=== PATIENT | female | born 1990 | race Caucasian/White ===

== ENCOUNTER 2018-07-14 13:00 | Outpatient (RCR) | payer BC, SELFPAY ==
--- NOTE | 2018-07-08 13:48 | HMH.PTOPEV ---
PT Outpatient Evaluation Rehab PT Outpatient Evaluation Start: 07/08/18 13:00 Freq: Status: Active Protocol: Document 07/08/18 13:32 SUELLENSANDI (Rec: 07/08/18 13:48 SUELLENDANIELAJUAN RAMON [id number]) Electronically Signed By Royce Ny, PT 07/08/18 13:32 Outpatient Therapy Subjective History Subjective History Patient is a 28 year old female presenting to outpatient PT with reports of global chronic pain of insidious onset starting in 2012. Main complaint is pain starting in knees radiating to ankles, as well as cervical pain radiating to bilateral shoulders. 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 All other diagnostics negative. No previous PT to report. Chief Complaint Pain Stiff Paresthesia Symptom Type Ache Throb Sharp Dull Stabbing Burning Numbness Tingling Shooting Symptoms Relieved By Rest/Positioning Prescription Meds Symptoms Aggravated By Sitting Standing Bending/Stooping Physical Activity Twisting Walking Lifting Prior Functional Limitations None Current Functional Limitations Reaching Lifting Housework Sleeping Standing Sitting Squatting Recreation Activity Walking Stairs Bending/Stooping Symptom Description Constant but Variable Level of pain today (0-10) 4 Pain scale - at its best (0-10) 2 Pain scale - at its worst (0-10) 7 Cervical Eval Palpation Cervical Muscles R Cervical Paraspinal L Cervical Paraspinal
== END 2018-07-14 13:01 | disposition home or self-care (01) ==
LOC: PT 13:00
PROVIDERS: Family Provider Nurse Practitioner Family; Visit Provider Internal Medicine Adolescent Medicine
DX: M25.50 Pain in unspecified joint (principal); M79.7 Fibromyalgia
CPT/HCPCS: 97010; 97014; 97110; 97163; G0283

== ENCOUNTER 2019-03-04 12:12 | Emergency (ER) | payer SELFPAY ==
[2019-03-04 12:14] VITALS: BP 138/76; PULSE 70; RESP 16; TEMP 36.7; O2SAT 99; BMI 30.7
--- NOTE | 2019-03-04 12:37 | HMH.EDUTC ---
[facility] [place]algia Disposition: Home, Self-Care Condition on Discharge: Good Instructions: Fibromyalgia Additional Instructions: Continue to take your medications that I refilled. I did not prescribe the gabapentin. Use the list of providers that are taking new patients to find yourself a provider that takes your insurance. Prescriptions: Fluoxetine HCl 40 mg PO DAILY #30 cap Meloxicam 15 mg PO DAILY #30 tab Methocarbamol [Methocarbamol 500mg Tablet] 1,000 mg PO HS #60 tab Referrals: Chris Wallace MD [Primary Care Provider] - Time of Disposition: 12:44 Medical Decision Making - Medical Records Medical records reviewed: Yes: I reviewed the patient's medical records. - Lopez Inquiry Pt receiving controlled substance: No Lopez was queried for this patient: No Reference #:: [id number] Comment: lopez report is appropriate Vital Signs: 03/04/19 12:14 03/04/19 13:04 Temperature 98.1 F 98.1 F Temperature Source Oral Oral Pulse Rate 70 Pulse Rate [Left Radial] 70 Respiratory Rate 16 16 Blood Pressure 138/76 Blood Pressure [Right Arm] 138/76 Blood Pressure Mean [Right Arm] 96 Blood Pressure Source Automatic Cuff Blood Pressure Source [Right Arm] Automatic Cuff Blood Pressure Position Sitting Blood Pressure Position [Right Arm] Sitting 02 Sat by Pulse Oximetry 99 Oxygen Delivery Method Room Air Room Air Medical Decision Narrative: I refilled her maintenance medications (except gabapentin) for 30 days. She is to find a provider that takes her insurance during this time. A list of providers that take new patients was provided to her. [facility] [place] - General Stated complaint: Medication refill Time Seen by Provider: 03/04/19 12:38 Mode of Arrival: Ambulatory Source of Information: Patient Limitations: No Limitations Description of Symptoms (Recalled from Triage Doc. by RN): medication refill HEENT Symptoms (Recalled from RN notes): No Resp Symptoms (Recalled from RN notes): No Skin Symptoms (Recalled from RN notes): No MS Symptoms (Recalled from RN notes): No Functional Status (Recalled from RN notes): wnl - History of Present Illness Provider Complaint: He is here needing refills on her maintenance medications. She states she has a history of fibromyalgia. She is on prozac, gabapentin, meloxicam and robaxin. She states she went for her appointment today and was told that her doctor (Dr. Wallace) no longer took her insurance. She states she will be out of all her medications after today. - Related Data Home Medications Medication Instructions Recorded Confirmed Gabapentin [Gabapentin 300mg Cap] 300 mg PO TID 03/04/19 03/04/19 Previous Rx's Medication Instructions Recorded Fluoxetine HCl 40 mg PO DAILY #30 cap 03/04/19 Meloxicam 15 mg PO DAILY #30 tab 03/04/19 Methocarbamol [Methocarbamol 500mg 1,000 mg PO HS #60 tab 03/04/19 Tablet] Allergies Allergy/AdvReac Type Severity Reaction Status Date / Time Sulfa (Sulfonamide Allergy Mild Unverified 09/09/17 14:04 Antibiotics) [SULFA (SULFONAMIDE ANTIBIOTICS)] - Worker's Comp Is this a Worker's Comp case?: No [facility] History - Hepatitis A Screen Drug use history?: No High risk sexual behaviors?: No History of sexually transmitted infection?: No Currently employed?: No Childcare worker?: No Do you have indoor plumbing?: Yes Do you have electricity?: Yes Attestation statement:: This patient has been screened for Hepatitis A risk factors. I have reviewed the patient's past medical history: Yes - Social History Educational Level: Completed High School Smoking Status: Current every day smoker Tobacco Type: cigarettes # Packs/Day (cigarettes): 1 Alcohol Intake: never Occupational Status: employed Housing: house - Psychiatric History Expresses thoughts of harming self/others: None Suicide Plan Description: No Plan ROS Obtained: Yes All systems review
--- NOTE | 2019-03-04 12:42 | ED_ITS ---
[facility] [place]ression: Fibromyalgia Disposition: Home, Self-Care Condition on Discharge: Good Instructions: Fibromyalgia Additional Instructions: Continue to take your medications that I refilled. I did not prescribe the gabapentin. Use the list of providers that are taking new patients to find yourself a provider that takes your insurance. Prescriptions: Fluoxetine HCl 40 mg PO DAILY #30 cap Meloxicam 15 mg PO DAILY #30 tab Methocarbamol [Methocarbamol 500mg Tablet] 1,000 mg PO HS #60 tab Referrals: Chris Wallace MD [Primary Care Provider] - Time of Disposition: 12:44 Medical Decision Making - Medical Records Medical records reviewed: Yes: I reviewed the patient's medical records. - Lopez Inquiry Pt receiving controlled substance: No Lopez was queried for this patient: No Reference #:: [id number] Comment: lopez report is appropriate Vital Signs: 03/04/19 12:14 03/04/19 13:04 Temperature 98.1 F 98.1 F Temperature Source Oral Oral Pulse Rate 70 Pulse Rate [Left Radial] 70 Respiratory Rate 16 16 Blood Pressure 138/76 Blood Pressure [Right Arm] 138/76 Blood Pressure Mean [Right Arm] 96 Blood Pressure Source Automatic Cuff Blood Pressure Source [Right Arm] Automatic Cuff Blood Pressure Position Sitting Blood Pressure Position [Right Arm] Sitting 02 Sat by Pulse Oximetry 99 Oxygen Delivery Method Room Air Room Air Medical Decision Narrative: I refilled her maintenance medications (except gabapentin) for 30 days. She is to find a provider that takes her insurance during this time. A list of providers that take new patients was provided to her. [facility] [place] - General Stated complaint: Medication refill Time Seen by Provider: 03/04/19 12:38 Mode of Arrival: Ambulatory Source of Information: Patient Limitations: No Limitations Description of Symptoms (Recalled from Triage Doc. by RN): medication refill HEENT Symptoms (Recalled from RN notes): No Resp Symptoms (Recalled from RN notes): No Skin Symptoms (Recalled from RN notes): No MS Symptoms (Recalled from RN notes): No Functional Status (Recalled from RN notes): wnl - History of Present Illness Provider Complaint: He is here needing refills on her maintenance medications. She states she has a history of fibromyalgia. She is on prozac, gabapentin, meloxicam and robaxin. She states she went for her appointment today and was told that her doctor (Dr. Wallace) no longer took her insurance. She states she will be out of all her medications after today. - Related Data Home Medications Medication Instructions Recorded Confirmed Gabapentin [Gabapentin 300mg Cap] 300 mg PO TID 03/04/19 03/04/19 Previous Rx's Medication Instructions Recorded Fluoxetine HCl 40 mg PO DAILY #30 cap 03/04/19 Meloxicam 15 mg PO DAILY #30 tab 03/04/19 Methocarbamol [Methocarbamol 500mg 1,000 mg PO HS #60 tab 03/04/19 Tablet] Allergies Allergy/AdvReac Type Severity Reaction Status Date / Time Sulfa (Sulfonamide Allergy Mild Unverified 09/09/17 14:04 Antibiotics) [SULFA (SULFONAMIDE ANTIBIOTICS)] - Worker's Comp
--- NOTE | 2019-03-04 13:03 | PC.NURSE ---
Upon trying to discharge patient she refused to sign discharge papers stating she wanted to know if her insurance would cover the visit and stated that he didn't do anything anyway.
[2019-03-04 13:04] VITALS: BP 138/76; PULSE 70; RESP 16; TEMP 36.7; O2SAT 99
== END 2019-03-04 13:04 | disposition home or self-care (01) ==
PROVIDERS: Emergency Provider Nurse Practitioner Family; PCP Internal Medicine Adolescent Medicine
DX: M79.7 Fibromyalgia (principal); Z88.2 Allergy status to sulfonamides; F17.210 Nicotine dependence, cigarettes, uncomplicated
CPT/HCPCS: 99201

== ENCOUNTER 2020-02-02 13:30 | Emergency (ER) | payer MEDICAID, SELFPAY ==
[2020-02-02 13:31] VITALS: BP 136/98; PULSE 83; RESP 18; TEMP 36.8; O2SAT 100; BMI 29.9
--- NOTE | 2020-02-02 13:45 | HMH.EDUTC ---
[facility] [place] Clinical Impression: Cat bite involving extremity Disposition: Home, Self-Care Condition on Discharge: Good Instructions: DI for Cat Bite Additional Instructions: Keep the wound clean and dry. Watch the for signs of worsening infection, such as redness, swelling, drainage, fever. etc. Take tylenol or ibuprofen for pain. Follow up with your regular doctor 48 to 72 hours for a wound recheck. GO TO THE ER FOR ANY WORSENING SYMPTOMS OR CONCERNS. Prescriptions: Amoxicillin/Potassium Clav [Augmentin 875-125 Tablet] 1 tab PO Q12H 10 Days #20 tab Transmission Status: Received by [facility] # Mupirocin [Bactroban 2% Ointment 22gm tube] 1 applicatio TP TID 7 Days #1 tube Transmission Status: Received by [facility] # Referrals: Provider,Referral, [Primary Care Provider] - Forms: Work/School Release Time of Disposition: 14:14 Medical Decision Making - Medical Records Medical records reviewed: No: I reviewed the patient's medical records. - Lawrence Inquiry Pt receiving controlled substance: No Vital Signs: 02/02/20 13:31 02/02/20 14:21 Temperature 98.3 F 98.3 F Temperature Source Oral Oral Pulse Rate 83 Pulse Rate [Radial] 83 Respiratory Rate 18 18 Blood Pressure 136/98 H Blood Pressure [Right Arm] 136/98 H Blood Pressure Mean [Right Arm] 110 Blood Pressure Source Automatic Cuff Blood Pressure Source [Right Arm] Automatic Cuff Blood Pressure Position Sitting Blood Pressure Position [Right Arm] Sitting 02 Sat by Pulse Oximetry 100 Oxygen Delivery Method Room Air Room Air Orders (Tests/Meds): ED MEDICATIONS Discontinued Medications Generic Name Dose Route Start Last Admin Trade Name Freq PRN Reason Stop Dose Admin Ceftriaxone Sodium 1 gm 02/02/20 13:53 02/02/20 14:03 Rocephin 1gm Vial IM 02/02/20 13:54 1 gm ONCE ONE Administration Protocol Lidocaine HCl 0 ml 02/02/20 13:53 02/02/20 14:04 Lidocaine 1% 10ml Mdv IM 02/02/20 13:54 2.1 ml ONCE ONE Administration Tetanus/Reduced Diphtheria/Acell Pertussis 0.5 ml 02/02/20 13:53 02/02/20 14:04 Adacel Tdap 0.5ml Syringe IM 02/02/20 13:54 0.5 ml .ONCE ONE Administration [facility] [place] HPI - General Stated complaint: [id number] cat bite 2 places Time Seen by Provider: 02/02/20 13:45 - History of Present Illness Provider Complaint: 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 Yesterday she was assisting in the treatment of a cat when it bit her on her right wrist and left hand. Since then, the bite location on her right wrist has became swollen and red. Her tetanus immunization is not up to date. She states that all the cat's immunizations were up to date. Specifically it definitely had had a rabies vaccine within the past 1 year. - Related Data Home Medications Medication Instructions Recorded Confirmed Gabapentin [Gabapentin 300mg Cap] 300 mg PO TID 03/04/19 03/04/19 Previous Rx's Medication Instructions Recorded Fluoxetine HCl 40 mg PO DAILY #30 cap 03/04/19 Meloxicam 15 mg PO DAILY #30 tab 03/04/19 methocarbamoL [Methocarbamol 500mg 1,000 mg PO HS #60 tab 03/04/19 Tablet] Amoxicillin/Potassium Clav 1 tab PO Q12H 10 Days #20 tab 02/02/20 [Augmentin 875-125 Tablet] Mupirocin [Bactroban 2% Ointment 1 applicatio TP TID 7 Days #1 tube 02/02/20 22gm tube] Allergies Allergy/AdvReac Type Severity Reaction Status Date / Time Sulfa (Sulfonamide Allergy Mild Verified 02/02/20 14:03 Antibiotics) [SULFA (SULFONAMIDE ANTIBIOTICS)] [facility] History - Hepatitis A Screen Attestation statement:: This patient has been screened for Hepatitis A risk factors. I have reviewed the patient's past medical history: Yes - Social History Smoking Status: Current every day smoker Tobacco Type: cigarettes # Packs/Day (cigarettes): 1 Alcohol Intake: never Occupational Status: employed Housing: house ROS Obtain
[2020-02-02 14:21] VITALS: BP 136/98; PULSE 83; RESP 18; TEMP 36.8; O2SAT 100
== END 2020-02-02 14:23 | disposition home or self-care (01) ==
PROVIDERS: Emergency Provider Nurse Practitioner Family
DX: S61.531A Puncture wound without foreign body of right wrist, initial encounter (principal); S61.032A Puncture wound without foreign body of left thumb without damage to nail, initial encounter; W55.01XA Bitten by cat, initial encounter; Y92.89 Other specified places as the place of occurrence of the external cause; Z23 Encounter for immunization
CPT/HCPCS: 90471; 90715; 96372; 99201

== ENCOUNTER 2022-09-01 10:33 | Emergency (ER) | payer BC, SELFPAY ==
[2022-09-01 10:33] VITALS: BP 133/82; PULSE 75; RESP 18; TEMP 36.8; O2SAT 99; BMI 34.4
--- NOTE | 2022-09-01 10:45 | HMH.EDGENADL ---
Discharge Plan Disposition Patient Disposition: Home, Self-Care Condition: Good Prescriptions Prescriptions: New methocarbamol 750 mg tablet 750 mg PO Q8H PRN (Reason: pain) Qty: 20 0RF No Action mupirocin 22 GM ointment 1 applicatio TP TID 7 Days Qty: 1 0RF amoxicillin-pot clavulanate 1 EACH tablet 1 tab PO Q12H 10 Days Qty: 20 0RF gabapentin 300 MG capsule 300 mg PO TID Label Comments: take 1 capsule by mouth three times a day fluoxetine 40 MG capsule 40 mg PO DAILY Qty: 30 0RF meloxicam 15 MG tablet 15 mg PO DAILY Qty: 30 0RF methocarbamol 500 MG tablet 1,000 mg PO HS Qty: 60 0RF Referrals Follow up/Referrals: Chris Wallace MD [Primary Care Provider] - See instructions Activity Restrictions/Add. Instructions Additional Instructions/Restrictions: You were evaluated in the emergency department today for neck pain. Please sort supervisor your prescription for your muscle relaxer at the pharmacy and take as needed. Follow-up with your primary care provider over the next 48 hours. Continue taking anti-inflammatories and Tylenol at home as needed for pain. Return to the emergency department for any new or worsening symptoms. Clinical Impressions Clinical Impression: Neck muscle strain Instructions Patient Instructions: DI for Acute Pain -- Adult, DI for Neck Pain Discharge ED Provider: Roxane Can General Adult HPI General Chief complaint: PAIN Stated complaint: LT shoulder/neck pain no known accident Time Seen by Provider: 09/01/22 10:38 Mode of Arrival: Ambulatory Source of Information: Patient Limitations: No Limitations Description of Symptoms (Recalled from ER Triage Doc. by RN): c/o left neck pain that goes into her shoulder for 2 days. Pt states that it first started out sore and now it has gotten to the point that she cant move her neck due to the pain. Denies any injury. History of Present Illness HPI narrative: This patient is a 32-year-old female with a history of fibromyalgia presenting to the emergency department for evaluation of left-sided neck pain/shoulder pain that she describes as muscle tightness and aching. She states that it started approximately 2 days ago. She denies any specific injuries. She states that it is progressively worsened since. She has been taking gabapentin and anti-inflammatories at home without significant improvement her pain is worse with movement.. She denies any fever, headaches, vision changes, numbness, tingling, or other concerns. Related Data Home Medications Medication Instructions Recorded Confirmed gabapentin 300 mg capsule 300 mg PO TID fibromyalgia 03/04/19 03/04/19 Previous Rx's Medication Instructions Recorded fluoxetine 40 mg capsule 40 mg PO DAILY Depression #30 caps 03/04/19 meloxicam 15 mg tablet 15 mg PO DAILY Pain #30 tabs 03/04/19 methocarbamol 500 mg tablet 1,000 mg PO HS Pain #60 tabs 03/04/19 amoxicillin 875 mg-potassium 1 tab PO Q12H 10 days #20 tabs 02/02/20 clavulanate 125 mg tablet mupirocin 2 % topical ointment 1 applicatio TP TID 7 days #1 tube 02/02/20 methocarbamol 750 mg tablet 750 mg PO Q8H PRN pain #20 tabs 09/01/22 Allergies Allergy/AdvReac Type Severity Reaction Status Date / Time Sulfa (Sulfonamide Allergy Mild Verified 02/02/20 14:03 Antibiotics) [SULFA (SULFONAMIDE ANTIBIOTICS)] [facility] Disclaimer: The information contained in this section may have been updated after the patient was seen, as this information can be updated by other users. Social History Smoking Status: Current every day smoker tobacco type: cigarettes packs per day: 1 second hand exposure: Yes alcohol intake: never current occupational status: employed Travel in the last 8 weeks: None housing: house ROS Obtained: Yes All systems reviewed & no additional complaints except as documented 14 point review of
[2022-09-01 11:00] VITALS: BP 118/80; PULSE 65; RESP 20; O2SAT 98
[2022-09-01 11:31] VITALS: BP 113/72; PULSE 70; RESP 18; O2SAT 97
[2022-09-01 12:04] VITALS: BP 115/85; PULSE 73; RESP 18; TEMP 36.8; O2SAT 97
== END 2022-09-01 12:04 | disposition home or self-care (01) ==
PROVIDERS: Emergency Provider Emergency Medicine; PCP Internal Medicine Adolescent Medicine
DX: M54.2 Cervicalgia (principal); M25.512 Pain in left shoulder; M79.7 Fibromyalgia; F32.A Depression, unspecified; Z79.899 Other long term (current) drug therapy; Z88.2 Allergy status to sulfonamides
CPT/HCPCS: 96374; 99284

== ENCOUNTER → 2023-01-06 17:09 | Outpatient (CLI) | payer BC, SELFPAY ==
--- NOTE | 2023-01-06 17:11 | US_ITS ---
FINAL REPORT CLINICAL HISTORY: MENORRHAGIA WITH REGULAR CYCLE FINDINGS: Transvaginal sonographic images of the pelvis were obtained. The uterus measures 9.1 x 5.3 x 4.4 cm. The uterus has a somewhat heterogeneous echotexture with out a well-defined mass. The endometrium measures 10 mm, which is within normal limits. The right ovary measures 3.2 cm in length and left ovary measures 3.2 cm in length. Normal blood flow seen to the ovaries. Multiple small follicles are present bilaterally. There is no evidence of free fluid. IMPRESSION: Somewhat heterogeneous echotexture of the uterus without a well-defined mass. Multiple small follicles in both ovaries. Reviewed, Interpreted and Dictated by Yrn Reagan III, MD Transcribed by Linda Sheehan Authenticated and [facility] [place]
== END ==
LOC: RAD 17:09
PROVIDERS: PCP Internal Medicine Adolescent Medicine; Visit Provider Internal Medicine Adolescent Medicine
DX: N92.0 Excessive and frequent menstruation with regular cycle (principal)
CPT/HCPCS: 76830

== ENCOUNTER → 2023-02-24 13:59 | Outpatient (CLI) | payer BC, SELFPAY ==
[2023-02-24 16:11] LABS: Thyroid Stimulating Hormone 2.47 uIU/mL (0.465-4.68)
== END ==
PROVIDERS: PCP Internal Medicine Adolescent Medicine; Visit Provider Obstetrics & Gynecology
DX: N92.0 Excessive and frequent menstruation with regular cycle (principal)
CPT/HCPCS: 36415; 84443

== ENCOUNTER 2023-07-09 12:18 | Emergency (ER) | payer OTHER, BC, SELFPAY ==
[2023-07-09 12:19] VITALS: BP 136/89; PULSE 73; RESP 18; TEMP 36.8; O2SAT 98; BMI 32.4
--- NOTE | 2023-07-09 12:25 | PC.NURSE ---
pt is sitting on side of bed. call light is within reach. Staff at BS
[2023-07-09 12:30] VITALS: BP 138/99; PULSE 80; O2SAT 97
--- NOTE | 2023-07-09 12:32 | PC.NURSE ---
Dr. Alicea at BS for pt eval
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
[2023-07-09 13:00] VITALS: BP 143/90; PULSE 73; O2SAT 94
--- NOTE | 2023-07-09 13:20 | PC.NURSE ---
pt to radiology by wheelchair
--- NOTE | 2023-07-09 13:31 | PC.NURSE ---
pt back from radiology
[2023-07-09 14:47] VITALS: BP 141/95; PULSE 80; RESP 18; TEMP 36.8; O2SAT 96
== END 2023-07-09 14:47 | disposition home or self-care (01) ==
PROVIDERS: Emergency Provider Emergency Medicine; PCP Internal Medicine Adolescent Medicine
DX: S39.012A Strain of muscle, fascia and tendon of lower back, initial encounter (principal); F17.210 Nicotine dependence, cigarettes, uncomplicated; F33.9 Major depressive disorder, recurrent, unspecified; F90.9 Attention-deficit hyperactivity disorder, unspecified type; V49.40XA Driver injured in collision with unspecified motor vehicles in traffic accident, initial encounter; Y92.410 Unspecified street and highway as the place of occurrence of the external cause
CPT/HCPCS: 72128; 72131; 99284

== ENCOUNTER → 2023-11-19 14:22 | Outpatient (POV) | payer BC, SELFPAY ==
--- NOTE | 2023-11-19 15:26 | EXP.PAIN.OV ---
HPI Data of Consult Patient: new to practice Consult date: 11/19/23 Requesting Physician: Roxane Ackerman APRN Primary Care Provider: Chris Wallace MD Consult Narrative Reason for consult: Generalized pain, fibromyalgia History of present illness: Ms. Shepherd is a 33 year old female who presents today as a new patient. She is a referral from Berenice Nguyen's office. Today she rates her pain a 7 out of 10. Patient states that she has pain all over and it does vary from day-to-day depending on how her fibromyalgia flareups occur. She does state that she has been experiencing these pains since she was a teenager around 17. She states that she did do all kinds of testing throughout the years and that she ultimately was diagnosed with this in 2012. Patient does state that it can be constant and interfere with daily living. Patient has been tried on gabapentin in the past and Lyrica however she states she did not notice significant relief. Patient is currently prescribed Lyrica 100 mg 3 times a day from her primary care provider her Lawrence has been reviewed and is appropriate. CC: Roxane Ackerman APRN [facility] Disclaimer: The information contained in this section may have been updated after the patient was seen, as this information can be updated by other users. Medical History Attention deficit disorder (ADD) in adult Menorrhagia Recurrent major depression resistant to treatment Surgical History History of tonsillectomy and adenoidectomy Hx of section Hx of wisdom tooth extraction Family History Other FHx: mental illness Fibromyalgia Social History Smoking Status: Current every day smoker tobacco type: cigarettes packs per day: 1 quit status: considering quitting second hand exposure: Yes alcohol intake: current counseling given: No substance use type: denies use counseling given: No current occupational status: employed Travel in the last 8 weeks: None adopted: No caregiver/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: Yes (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) foster care: No household members: spouse housing: house lives independently: Yes marital status: number of children: 3 number of grandchildren: 0 education level: high school service: No snf: No current occupation: [employer] Hx Recent Travel: No sexually active: Yes are you practicing safe sex: Yes caffeine: Yes physical activity: none amanda/mormonism: Faith special amanda needs: No working smoke detector in home: Yes fire extinguisher in home: Yes carbon monox detector in home: No firearms in home: Yes firearms unloaded and locked: Yes do you feel safe at home: Yes Review of Systems Review of Systems Review of systems:: pertinent systems reviewed and negative unless documented below Review of systems (narrative): Review of Systems: General: No recent weight changes, no fever, no sleep disturbances Respiratory: No cough, no shortness of air, no recurring pulmonary infections Cardiovascular/peripheral vascular: No chest pain, no palpitations, no edema, no shortness of breath Gastrointestinal: No new onset incontinence, normal bowel movements reported Genitourinary: No new onset incontinence Musculoskeletal: Generalized pain, fibromyalgia Psychiatric: [Normal mood/affect] Neurological: [Denies weakness in extremities], [denies balance issues] Meds Home Medications and Allergies Home Medications Medication Instructions Recorded Confirmed Type fluoxetine 40 mg capsule 40 mg PO DAILY Depression #30 caps 03/04/19 02/24/23 Rx gabapentin 300 mg capsule 300 mg PO TID fibromyalgia 03/04/19 02/24/23 History cariprazine 1.5 mg capsule 1.5 mg PO DAILY #30 caps 01/29/23 02/24/23 Rx (Vraylar) hydroxychloroquine 200 mg tablet 200 mg PO BID 02/24/23 02/24/23 History methocarbamol 750 mg tablet 1,500 mg PO TID 5 days #30 tabs 07/09/23 Rx ondansetron 4 mg disintegrating 4 mg PO Q6H PRN nausea and 07/09/23 Rx tablet vomiting #10 tabs New Prescriptions to Start Prescriptions: Allergies Allergy/AdvReac Type Severity Reaction Status Date / Time Sulfa (Sulfonamide Allergy Mild Verified 02/24/23 13:05 Antibiotics) [SULFA (SULFONAMIDE ANTIBIOTICS)] Objective Narrative: Physical Exam: General: Alert and oriented x3, no acute distress, pleasant and cooperative Lungs: Respirations even and unlabored, symmetrical chest expansion Eyes: PERRL Musculoskeletal: Flexion and extension of lumbar spine within normal limits Neurological: Speech clear, no gross sensory deficit Assessment and Plan *Assessment and plan (1) Fibromyalgia: Status: Acute Category: Medical Code(s): M79.7 - Fibromyalgia (2) Generalized pain: Status: Acute Category: Medical Code(s): R52 - Pain, unspecified Plan Patient does experience frequent flareups related to her fibromyalgia. Patient has already been tested for RA and lupus. I have discussed with the patient that she may benefit with the addition of Cymbalta. I will send in a 1 month's prescription of Cymbalta 20 mg twice daily. I will also order the patient a compounded cream. Patient will return to clinic in 1 month for reevaluation of symptoms and plan of care. Patient has been instructed to contact the clinic with any concerns before the next appointment. Dr. Pack has reviewed this note and agrees with this plan of care. This note was dictated using voice recognition software and make contain errors or omissions.
[2023-11-19 16:33] VITALS: BP 124/94; PULSE 69; RESP 18; O2SAT 95; BMI 32.4
== END | disposition home or self-care (01) ==
PROVIDERS: PCP Internal Medicine Adolescent Medicine; Visit Provider Nurse Practitioner Family
DX: M79.7 Fibromyalgia (principal); R52 Pain, unspecified
CPT/HCPCS: 99202; G0463

== ENCOUNTER 2023-12-22 13:48 | Outpatient (POV) | payer BC, SELFPAY ==
[2023-12-22 13:57] VITALS: BP 149/87; PULSE 89; RESP 18; O2SAT 98; BMI 35.7
--- NOTE | 2023-12-22 14:08 | EXP.PAIN.SOA ---
[facility] Pain Management SOAP Note Subjective:: Patient is a pleasant 33-year-old female who presents today for follow-up. Today she rates her pain a 6 out of 10. Patient denies any new injury or trauma. She does state that she did get the compounded cream that we ordered at her last visit and she did not really notice significant relief. Today she does state that she is having pains all around her shoulders neck low back and hip. Patient does state that her left hip is the most bothersome. She does state that she feels like it is worse with increased activity or ambulation and frequently feels like the weather changes affect the pain. She does state that she feels like it possibly is more arthritis. Patient denies any prior injection history or surgery on her hip. She states that the right will occasionally bother her but primarily it is the left. She states that will affect her ability to perform activities of daily living such as cooking and cleaning. She states that when she gets out of the vehicle sometimes she will feel like it pops in and out of place. Patient at our last visit was also prescribed Cymbalta 20 mg twice a day and she states that she has not significantly noticed improvement but she has not had any side effects. Her Lawrence has been reviewed and is appropriate. Patient is also prescribed Lyrica from an outside provider. Review of Systems: General: No recent weight changes, no fever, no sleep disturbances Respiratory: No cough, no shortness of air, no recurring pulmonary infections Cardiovascular/peripheral vascular: No chest pain, no palpitations, no edema, no shortness of breath Gastrointestinal: No new onset incontinence, normal bowel movements reported Genitourinary: No new onset incontinence Musculoskeletal: Left hip pain Psychiatric: [Normal mood/affect] Neurological: [Denies weakness in extremities], [denies balance issues] Objective:: Physical Exam: General: Alert and oriented x3, no acute distress, pleasant and cooperative Lungs: Respirations even and unlabored, symmetrical chest expansion Eyes: PERRL Musculoskeletal: Flexion and extension of left hip somewhat guarded secondary to pain, [antalgic gait noted] Neurological: Speech clear, no gross sensory deficit Assessment:: Low back pain, generalized pain, fibromyalgia, left hip pain, neck pain, shoulder pain Plan:: Patient is experiencing worsening pain in her left hip with limited range of motion. I have discussed with the patient that she may benefit from a left hip intra-articular injection. Risk and benefits were discussed with patient and she would like to proceed forward with this plan of care. I will also increase her Cymbalta to 40 mg twice a day and provide a 1 month supply of this medication. Patient will be scheduled for a left hip intra-articular injection. Patient has been instructed to contact the clinic with any concerns before the next appointment. Dr. Pack has reviewed this note and agrees with this plan of care. This note was dictated using voice recognition software and make contain errors or omissions. [facility] Disclaimer: The information contained in this section may have been updated after the patient was seen, as this information can be updated by other users. Medical History Attention deficit disorder (ADD) in adult Menorrhagia Recurrent major depression resistant to treatment Surgical History History of tonsillectomy and adenoidectomy Hx of section Hx of wisdom tooth extraction Family History Other FHx: mental illness Fibromyalgia Social History (Updated 11/19/23 @ 16:34 by Bre Sharma RN) Smoking Status: Current every day smoker tobacco type: cigarettes packs per day: 1 quit status: considering quitting second hand exposure: Yes alcohol intake: current counseling given: No substance use type: denies use counseling given: No current occupational status: other Travel in the last 8 weeks: None adopted: No caregiver/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: Yes (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) foster care: No household members: spouse housing: house lives independently: Yes marital status: number of children: 3 number of grandchildren: 0 education level: high school service: No long term: No 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
== END 2023-12-22 23:59 | disposition home or self-care (01) ==
PROVIDERS: PCP Internal Medicine Adolescent Medicine; Visit Provider Nurse Practitioner Family
DX: M54.50 Low back pain, unspecified (principal); M79.7 Fibromyalgia; M25.552 Pain in left hip; M54.2 Cervicalgia; M25.519 Pain in unspecified shoulder
CPT/HCPCS: 99212; G0463

== ENCOUNTER 2024-01-13 13:31 | Day surgery (SDC) | payer BC, SELFPAY ==
[2024-01-13 13:51] VITALS: BP 124/75; PULSE 73; RESP 16; TEMP 36.1; O2SAT 92; BMI 34.9
[2024-01-13] MEDS: methylPREDNISolone ACETATE 80MG/ML VIAL 80 MG (14:07)
[2024-01-13] MEDS: LIDOCAINE 1% 5ML PF VIAL 5 ML (14:07)
[2024-01-13] MEDS: BUPIVACAINE 0.25% 10ML INJ 25 MG IJ (14:07)
--- NOTE | 2024-01-13 14:12 | P.PCN_ITS ---
Procedure Date: 01/13/24 Time: 14:00 Anesthesiologist:: Margarito Ramirez CRNA Complications:: None Pre-procedure Diagnosis:: DJD left hip. Chronic left hip pain. Post-procedure Diagnosis:: Same. Indications for Procedure:: Patient is a pleasant 33-year-old female that comes to clinic today for intra- articular left hip injection. She reports left hip pain with flexion, extension, abduction, adduction. Ambulation increases pain in the left hip. She describes the pain as dull pressure. She rates her pain 6/10. Procedure Details:: Details of the procedure were explained to the patient. The patient was taken to procedure room placed in the supine position. The area over the left hip was cleaned using chlorhexidine as a cleansing solution. Using fluoroscopy guidance a 3 and half inch 22-gauge spinal needle was used to access the left hip joint without difficulty. After negative aspiration 3 cc of 1% lidocaine +3 cc of 0.25% Marcaine and 40 mg of Depo-Medrol was injected. Needle was withdrawn. Band-Aid applied. Patient tolerated procedure without difficulty. There are no complications. Plan and Disposition:: Patient was discharged without incident.
[2024-01-13 14:14] VITALS: BP 120/70; PULSE 69; RESP 16; O2SAT 92
== END 2024-01-13 14:14 | disposition home or self-care (01) ==
PROVIDERS: PCP Internal Medicine Adolescent Medicine; Visit Provider Nurse Anesthetist, Certified Registered
DX: M16.12 Unilateral primary osteoarthritis, left hip (principal); M25.552 Pain in left hip; G89.29 Other chronic pain
CPT/HCPCS: 20610; 77002; J1010

== ENCOUNTER 2024-04-08 09:41 | Outpatient (POV) | payer BC, SELFPAY ==
[2024-04-08 09:52] VITALS: BP 135/89; PULSE 63; RESP 18; O2SAT 95; BMI 34.9
--- NOTE | 2024-04-08 10:51 | A.OFFVIS_ITS ---
[facility] Disclaimer: The information contained in this section may have been updated after the patient was seen, as this information can be updated by other users. Medical History Attention deficit disorder (ADD) in adult Menorrhagia Recurrent major depression resistant to treatment Surgical History History of tonsillectomy and adenoidectomy Hx of section Hx of wisdom tooth extraction Family History Other FHx: mental illness Fibromyalgia Social History Smoking Status: Current every day smoker tobacco type: cigarettes packs per day: 1 quit status: considering quitting second hand exposure: Yes alcohol intake: current alcohol intake frequency: holidays/special occasions only counseling given: No substance use type: denies use counseling given: No current occupational status: other Travel in the last 8 weeks: None adopted: No caregiver/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: Yes (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) foster care: No household members: spouse housing: house lives independently: Yes marital status: number of children: 3 number of grandchildren: 0 education level: high school service: No mcc: No 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 Today she rates her pain a 9 out of 10. Patient does state that when she had that injection initially it did hurt for about 3 days before the steroid really kicked in. Patient states she then did have significant relief of upwards of 40 to 50% improvement and that it lasted up until the last 3 weeks. Patient does feel like she has worsening pain in her hip but does state that she also has it on her right side as well. Patient does describe this pain as an aching, throbbing sensation with numbness and tingling into her buttocks area. Patient does state the pain is interfering with her ability perform activities of daily living such as cooking and cleaning. Patient does also state that she feels like a lot of it may be stemming from her back and is interested in an updating her imaging. Patient was previously prescribed compounded cream however she states she did not notice improvement and she was given a prescription of Cymbalta 40 mg twice a day however she felt like she did not really notice improvement and has not continued this medication. Patient is prescribed Lyrica from an outside provider. Her Lawrence has been reviewed and is appropriate. Review of Systems: General: No recent weight changes, no fever, no sleep disturbances Respiratory: No cough, no shortness of air, no recurring pulmonary infections Cardiovascular/peripheral vascular: No chest pain, no palpitations, no edema, no shortness of breath Gastrointestinal: No new onset incontinence, normal bowel movements reported Genitourinary: No new onset incontinence Musculoskeletal: Low back pain, bilateral hip pain Psychiatric: [Normal mood/affect] Neurological: [Denies weakness in extremities], [denies balance issues] Pain at rest (0-10 scale): 9 Objective Objective:: Physical Exam: General: Alert and oriented x3, no acute distress, pleasant and cooperative Lungs: Respirations even and unlabored, symmetrical chest expansion Eyes: PERRL Musculoskeletal: Flexion and extension of lumbar [spine] somewhat guarded secondary to pain, [antalgic gait noted] point tenderness along bilateral SIs with positive bilateral Adela's, Ritika's, Gaenslen's, compression and distraction exam Neurological: Speech clear, no gross sensory deficit Has patient had previous pain injection?: Yes Percent improvement in pain since last injection: 50% Conservative treatment options previously tried: Home exercise plan Length of treatment: Longer than 6 weeks and Prescription medications Length of treatment: Longer than 6 weeks Meds Home Medications and Allergies Home Medications Medication Instructions Recorded Confirmed Type fluoxetine 40 mg capsule 40 mg PO DAILY Depression #30 caps 03/04/19 04/08/24 Rx gabapentin 300 mg capsule 300 mg PO TID fibromyalgia 03/04/19 04/08/24 History cariprazine 1.5 mg capsule 1.5 mg PO DAILY #30 caps 01/29/23 04/08/24 Rx (Vraylar) hydroxychloroquine 200 mg tablet 200 mg PO BID 02/24/23 04/08/24 History methocarbamol 750 mg tablet 1,500 mg (2 x 750 mg) PO TID 5 07/09/23 04/08/24 Rx days #30 tabs ondansetron 4 mg disintegrating 4 mg PO Q6H PRN nausea and 07/09/23 04/08/24 Rx tablet vomiting #10 tabs duloxetine 20 mg capsule,delayed 20 mg PO BID #60 caps 11/19/23 04/08/24 Rx release duloxetine 40 mg capsule,delayed 40 mg PO BID #60 caps 12/22/23 04/08/24 Rx release New Prescriptions to Start Prescriptions: Allergies Allergy/AdvReac Type Severity Reaction Status Date / Time Sulfa (Sulfonamide Allergy Mild Verified 01/13/24 13:52 Antibiotics) [SULFA (SULFONAMIDE ANTIBIOTICS)] Assessment and Plan *Assessment and plan (1) Bilateral sacroiliitis: Status: Acute Category: Medical Code(s): M46.1 - Sacroiliitis, not elsewhere classified Plan Patient is experiencing worsening pain in her low back and bilateral hips with limited range of motion. Patient did have extreme point tenderness along her left SI and point tenderness at her right SI with positive bilateral Adela's, Ritika's, Gaenslen's, compression and distraction exam. I have discussed with patient that she may benefit from bilateral SI injections. Risk and benefits were discussed with the patient and she would like to proceed forward with this plan of care. Patient has continued to do at home stretching exercise for longer than 6 weeks with no additional change. We will schedule the patient for bilateral SI injections under fluoroscopy. I will also order x-ray imaging of her lumbar spine with the plan to proceed forward with advanced imaging at a later date. Patient has been instructed to contact the clinic with any concerns before the next appointment. Dr. Pack has reviewed this note and agrees with this plan of care. This note was dictated using voice recognition software and make contain errors or omissions.
== END 2024-04-08 23:59 | disposition home or self-care (01) ==
LOC: SC.PAIN 09:41
PROVIDERS: PCP Internal Medicine Adolescent Medicine; Visit Provider Nurse Practitioner Family
DX: M46.1 Sacroiliitis, not elsewhere classified (principal); F17.210 Nicotine dependence, cigarettes, uncomplicated; Z73.89 Other problems related to life management difficulty
CPT/HCPCS: 99212; G0463

== ENCOUNTER 2024-04-08 10:19 | Outpatient (CLI) | payer BC, SELFPAY ==
--- NOTE | 2024-04-08 10:23 | XR_ITS ---
FINAL REPORT CLINICAL HISTORY: LOWER BACK PAIN pt states chronic back pain COMPARISON: None FINDINGS: AP, lateral, and oblique views of the lumbar spine were obtained. There is no acute fracture or acute malalignment. Vertebral body height is preserved. . No acute paraspinal abnormality is identified. IMPRESSION: No acute osseous abnormalities lumbar spine. Reviewed, Interpreted and Dictated by Cynthia Vega MD Transcribed by Vianca Gallegos Authenticated and [facility]
== END 2024-04-08 23:59 | disposition home or self-care (01) ==
LOC: RAD 10:19
PROVIDERS: PCP Internal Medicine Adolescent Medicine; Visit Provider Nurse Practitioner Family
DX: M54.50 Low back pain, unspecified (principal)
CPT/HCPCS: 72110

== ENCOUNTER 2024-04-20 10:13 | Day surgery (SDC) | payer BC, SELFPAY ==
[2024-04-20 10:40] VITALS: BP 126/75; PULSE 56; RESP 16; TEMP 36.8; O2SAT 97; BMI 34.9
--- NOTE | 2024-04-20 10:56 | P.PCN_ITS ---
Procedure Date: 04/20/24 Time: 10:55 Anesthesiologist:: Margarito Ramirez CRNA Complications:: None Pre-procedure Diagnosis:: Bilateral sacroiliitis. Post-procedure Diagnosis:: Same. Indications for Procedure:: Patient is a very pleasant 34-year-old female who comes our clinic today for bilateral sacroiliac joint injections of cortisone. Patient describes low lumbar back pain off the midline bilaterally. Also, bilateral posterior hip pain. She reports difficulty transitioning from sitting to standing. Ambulation increases pain. Sitting increases pain. She rates her pain 7/10. Procedure Details:: Procedure: Bilateral sacroiliac joint injections under fluoroscopy Informed consent was obtained and the risks and benefits of the procedure were explained to the patient.~ The patient was taken to the procedure room and noninvasive monitors were placed including a noninvasive blood pressure cuff and pulse oximeter.~ The patient was placed prone on the procedure table. Both hips were cleansed using Betadine as a cleansing solution. C-arm fluoroscopy was used to view the right sacroiliac joint.~ The skin and subcutaneous tissues were anesthetized using lidocaine 1.5% and a 25-gauge needle.~ After this, a 22-gauge spinal needle was inserted under fluoroscopic guidance into the inferior aspect of the right sacroiliac joint.~ Omnipaque dye was injected and good spread was seen throughout the joint.~ After this, approximately 5 mL of bupivacaine, 0.25% and Depo-Medrol, 40 mg was incrementally injected into the right sacroiliac joint. We then moved to the left sacroiliac joint.~ The skin and subcutaneous tissues were anesthetized using lidocaine 1.5% and a 25-gauge needle.~ After this, a 22- gauge spinal needle was inserted under fluoroscopic guidance into the inferior aspect of the left sacroiliac joint.~ Omnipaque dye was injected and good spread was seen throughout the joint. After this, approximately 5 mL of bupivacaine, 0.25% and Depo-Medrol, 40 mg was incrementally injected into the left sacroiliac joint.~ The patient tolerated the procedure well with no complications. The patient was observed in the Pain Clinic and then was discharged home neurologically intact. Plan and Disposition:: Patient was discharged without incident.
[2024-04-20] MEDS: LIDOCAINE 1% 5ML PF VIAL 5 ML (10:58)
[2024-04-20 11:04] VITALS: BP 132/86; PULSE 61; RESP 18; O2SAT 99
[2024-04-20] MEDS: BUPIVACAINE 0.25% 10ML INJ 25 MG IJ (11:04)
[2024-04-20] MEDS: methylPREDNISolone ACETATE 80MG/ML VIAL 80 MG (11:04)
[2024-04-20 11:06] VITALS: BP 132/86; PULSE 61; RESP 18; O2SAT 99
[2024-04-20 11:09] VITALS: BP 130/85; PULSE 57; RESP 18; O2SAT 97
== END 2024-04-20 11:10 | disposition home or self-care (01) ==
PROVIDERS: PCP Internal Medicine Adolescent Medicine; Visit Provider Nurse Anesthetist, Certified Registered
DX: M46.1 Sacroiliitis, not elsewhere classified (principal)
CPT/HCPCS: 27096; G0260; J1010

== ENCOUNTER 2024-05-12 13:19 | Outpatient (POV) | payer BC, SELFPAY ==
[2024-05-12 13:31] VITALS: BP 123/67; PULSE 82; RESP 16; O2SAT 96; BMI 34.9
--- NOTE | 2024-05-12 14:28 | A.OFFVIS_ITS ---
[facility] Disclaimer: The information contained in this section may have been updated after the patient was seen, as this information can be updated by other users. Medical History Attention deficit disorder (ADD) in adult Menorrhagia Recurrent major depression resistant to treatment Surgical History History of tonsillectomy and adenoidectomy Hx of section Hx of wisdom tooth extraction Family History Other FHx: mental illness Fibromyalgia Social History Smoking Status: Current every day smoker tobacco type: cigarettes packs per day: 1 quit status: considering quitting second hand exposure: Yes alcohol intake: current alcohol intake frequency: holidays/special occasions only counseling given: No substance use type: denies use counseling given: No current occupational status: unemployed Travel in the last 8 weeks: None adopted: No caregiver/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: Yes (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) foster care: No household members: spouse housing: house lives independently: Yes marital status: number of children: 3 number of grandchildren: 0 education level: high school service: No [place] [facility]: No 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 Patient rates her pain today at a 7 out of 10. Patient denies any new trauma or injury. She does state that she really had no additional improvement following these injections. She states she continues to have low back pain all along the left side and that on occasion it will go down all the way to her toes. Patient states this is a fairly constant aching, throb dontrell pain. Patient does state that these injections are seeming rather costly and that her last co-pay was 300 for these and that this is not something that she can do that often. Patient does state that she is planning on following up with her primary care here soon that she is currently on Lyrica however would like to talk to them about switching back to gabapentin. Patient states she feels like she has not noticed significant relief but that she is also recently started to have a rash on her face. Patient states that the change of medicine did not really correlate with the Lyrica medication so she thinks it is unrelated possibly. Patient does state in the past she has had 2 positive lupus test with 1 negative and did take medication for a year however made no change. Patient has been tested for RA and that it was negative as well. Her Lawrence has been reviewed and is appropriate. Review of Systems: General: No recent weight changes, no fever, no sleep disturbances Respiratory: No cough, no shortness of air, no recurring pulmonary infections Cardiovascular/peripheral vascular: No chest pain, no palpitations, no edema, no shortness of breath Gastrointestinal: No new onset incontinence, normal bowel movements reported Genitourinary: No new onset incontinence Musculoskeletal: Low back pain, left leg pain Psychiatric: [Normal mood/affect] Neurological: [Denies weakness in extremities], [denies balance issues] Pain at rest (0-10 scale): 7 Objective Objective:: Physical Exam: General: Alert and oriented x3, no acute distress, pleasant and cooperative Lungs: Respirations even and unlabored, symmetrical chest expansion Eyes: PERRL Musculoskeletal: Flexion and extension of lumbar [spine] somewhat guarded secondary to pain, [antalgic gait noted] Neurological: Speech clear, no gross sensory deficit Has patient had previous pain injection?: Yes Percent improvement in pain since last injection: 0 Conservative treatment options previously tried: Home exercise plan Length of treatment: Longer than 6 weeks Meds Home Medications and Allergies Home Medications ?Medication ?Instructions ?Recorded ?Confirmed ?Type fluoxetine 40 mg capsule 40 mg PO DAILY Depression #30 caps 03/04/19 05/12/24 Rx gabapentin 300 mg capsule 300 mg PO TID fibromyalgia 03/04/19 05/12/24 History cariprazine 1.5 mg capsule 1.5 mg PO DAILY #30 caps 01/29/23 05/12/24 Rx (Vraylar) hydroxychloroquine 200 mg tablet 200 mg PO BID 02/24/23 05/12/24 History methocarbamol 750 mg tablet 1,500 mg (2 x 750 mg) PO TID 5 07/09/23 05/12/24 Rx days #30 tabs ondansetron 4 mg disintegrating 4 mg PO Q6H PRN nausea and 07/09/23 05/12/24 Rx tablet vomiting #10 tabs duloxetine 20 mg capsule,delayed 20 mg PO BID #60 caps 11/19/23 05/12/24 Rx release duloxetine 40 mg capsule,delayed 40 mg PO BID #60 caps 12/22/23 05/12/24 Rx release New Prescriptions to Start Prescriptions: Allergies Allergy/AdvReac Type Severity Reaction Status Date / Time Sulfa (Sulfonamide Allergy Mild Verified 04/20/24 10:41 Antibiotics) [SULFA (SULFONAMIDE ANTIBIOTICS)] Assessment and Plan *Assessment and plan (1) Bilateral sacroiliitis: Status: Acute Category: Medical Code(s): M46.1 - Sacroiliitis, not elsewhere classified (2) Low back pain: Status: Acute Qualifiers: Chronicity: chronic Back pain laterality: bilateral Sciatica presence: unspecified whether sciatica present Qualified Code(s): M54.50 - Low back pain, unspecified; G89.29 - Other chronic pain Category: Medical Code(s): M54.50 - Low back pain, unspecified Plan I did discuss with patient in future it may be beneficial to look at possibly doing a lumbar epidural and that due to the increased cost that it can be something that we can talk to the financial department here at [facility] and see if there is any options. I did also discuss with the patient if we are unable to do anything with the cost here that worst-case scenario that we can send her to the [facility] that is a stand-alone clinic and outside of the hospital and that generally insurance is a lot cheaper on injections done at these locations. I will send in a 2-week supply of diclofenac 75 mg twice d aily. Patient denies any heart or kidney issues. Patient was counseled to discontinue all other NSAIDs while taking this medication and to take it with food to minimize stomach upset. Patient will return to clinic in 2 weeks for reevaluation of symptoms and plan of care. Patient has been instructed to contact the clinic with any concerns before the next appointment. Dr. Pack has reviewed this note and agrees with this plan of care. This note was dictated using voice recognition software and make contain errors or omissions. All injections are used with Lidocaine or Bupivacaine and Depo Medrol.
== END 2024-05-12 23:59 | disposition home or self-care (01) ==
LOC: SC.PAIN 13:19
PROVIDERS: PCP Internal Medicine Adolescent Medicine; Visit Provider Nurse Practitioner Family
DX: M54.50 Low back pain, unspecified (principal); G89.29 Other chronic pain; F17.210 Nicotine dependence, cigarettes, uncomplicated
CPT/HCPCS: 99212; G0463

== ENCOUNTER 2024-06-15 14:54 | Outpatient (CLI) | payer BC, SELFPAY ==
[2024-06-15 15:18] LABS: Basophils % 0.7 % (0.1-2.0); Eosinophils # 0.1 K/mm3 (0.0-0.4); Eosinophils % 1.8 % (0.1-12.0); Hematocrit 41.5 % (37.0-47.0); Hemoglobin 13.5 g/dL (12.2-16.2); Lymphocytes # 1.6 K/mm3 (0.7-4.5); Lymphocytes % 34.4 % (10-50); Mean Corpuscular HGB Conc 32.5 g/dL (31.8-35.4); Mean Corpuscular Hemoglobin 31.9 pg (27.0-31.2); Mean Corpuscular Volume 98.2 fl (81-99); Monocytes # 0.2 K/mm3 (0.1-1.0); Monocytes % 4.7 % (1.7-9.3); Neutrophils # 2.7 K/mm3 (1.8-7.8); Neutrophils % 58.3 % (37.0-80.0); Platelet Count 242 K/mm3 (142-424); Red Blood Count 4.23 M/mm3 (4.20-5.40); Red Cell Distribution Width 13.5 % (11.5-17.5); White Blood Count 4.6 K/mm3 (4.8-10.8)
[2024-06-15 15:32] LABS: Chloride 111 mmol/L (98-107); Potassium 3.6 mmoL/L (3.5-5.1); Sodium 138 mmol/L (136-145)
[2024-06-15 15:34] LABS: Blood Urea Nitrogen 14 mg/dl (7-17); Estimated Glomerular Filt Rate 115 ml/min (>60); GFR (African American) 139 ML/MIN (>60)
[2024-06-15 15:35] LABS: Alanine Aminotransferase 19 U/L (12-78); Albumin/Globulin Ratio 1.4 (1.1-1.8); Alkaline Phosphatase 56 U/L (38-126); Anion Gap 4.6 mEq/L (5-15); Aspartate Amino Transferase 28 U/L (14-36); Bilirubin,Total 0.5 mg/dl (0.2-1.3); Calcium 8.9 mg/dl (8.4-10.2); Carbon Dioxide 26 mmol/L (22.0-30.0); Globulin 2.8 g/dL (1.3-3.2); Glucose 103 mg/dl (74-100); Total Protein,Serum 6.8 g/dl (6.3-8.2)
[2024-06-15 15:56] LABS: Erythrocyte Sedimentation Rate 23 mm/hr (0-20)
== END 2024-06-15 23:59 | disposition home or self-care (01) ==
LOC: LAB 14:54
PROVIDERS: PCP Internal Medicine Adolescent Medicine; Visit Provider Physician Assistant
DX: R21 Rash and other nonspecific skin eruption (principal)
CPT/HCPCS: 36415; 80053; 85025; 85651; 86140

== ENCOUNTER 2024-07-26 15:03 | Outpatient (POV) | payer BC, SELFPAY ==
--- NOTE | 2024-07-26 15:11 | EXP.PAIN.SOA ---
[facility] Disclaimer: The information contained in this section may have been updated after the patient was seen, as this information can be updated by other users. Medical History Attention deficit disorder (ADD) in adult Menorrhagia Recurrent major depression resistant to treatment Surgical History History of tonsillectomy and adenoidectomy Hx of section Hx of wisdom tooth extraction Family History Other FHx: mental illness Fibromyalgia Social History Smoking Status: Current every day smoker tobacco type: cigarettes packs per day: 1 quit status: considering quitting second hand exposure: Yes alcohol intake: current alcohol intake frequency: holidays/special occasions only counseling given: No substance use type: denies use counseling given: No current occupational status: unemployed Travel in the last 8 weeks: None adopted: No caregiver/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: Yes (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) foster care: No household members: spouse housing: house lives independently: Yes marital status: number of children: 3 number of grandchildren: 0 education level: high school service: No senior living: No current occupation: [employer] Hx Recent Travel: No sexually active: Yes are you practicing safe sex: Yes caffeine: Yes physical activity: none amanda/adventist: Faith special amanda needs: No working smoke detector in home: Yes fire extinguisher in home: Yes carbon monox detector in home: No firearms in home: Yes firearms unloaded and locked: Yes do you feel safe at home: Yes PM Subjective & Objective Subjective Subjective:: Patient is a pleasant 34-year-old female who presents today for follow-up. Today she rates her pain a 8 out of 10. Patient denies any new trauma or injury. Patient continues to have chronic pain throughout her back and hips that does interfere with her ability perform activities of daily living such as cooking and cleaning. Patient is prescribed pregabalin from her PCP. At her last visit she was sent in a 2-week prescription of baclofen 5 mg 3 times daily and meloxicam 15 mg daily. She does state that she had no side effects however she did not seem to notice any improvement with the meloxicam. Patient states that the baclofen did seem to help some. Patient has already been tried on diclofenac with no additional changes. Today she states her Lawrence has been reviewed and is appropriate. Review of Systems: General: No recent weight changes, no fever, no sleep disturbances Respiratory: No cough, no shortness of air, no recurring pulmonary infections Cardiovascular/peripheral vascular: No chest pain, no palpitations, no edema, no shortness of breath Gastrointestinal: No new onset incontinence, normal bowel movements reported Genitourinary: No new onset incontinence Musculoskeletal: Bilateral hip pain, low back pain Psychiatric: [Normal mood/affect] Neurological: [Denies weakness in extremities], [denies balance issues] Pain at rest (0-10 scale): 8 Objective Objective:: Physical Exam: General: Alert and oriented x3, no acute distress, pleasant and cooperative Lungs: Respirations even and unlabored, symmetrical chest expansion Eyes: PERRL Musculoskeletal: Flexion and extension of lumbar spine somewhat guarded secondary to pain Neurological: Speech clear, no gross sensory deficit Has patient had previous pain injection?: No Conservative treatment options previously tried: Home exercise plan Length of treatment: Longer than 12 weeks Meds Home Medications and Allergies Home Medications ?Medication ?Instructions ?Recorded ?Confirmed ?Type fluoxetine 40 mg capsule 40 mg PO DAILY Depression #30 caps 03/04/19 06/02/24 Rx gabapentin 300 mg capsule 300 mg PO TID fibromyalgia 03/04/19 06/02/24 History cariprazine 1.5 mg capsule 1.5 mg PO DAILY #30 caps 01/29/23 06/02/24 Rx (Agustínr) hydroxychloroquine 200 mg tablet 200 mg PO BID 02/24/23 06/02/24 History methocarbamol 750 mg tablet 1,500 mg (2 x 750 mg) PO TID 5 07/09/23 06/02/24 Rx days #30 tabs ondansetron 4 mg disintegrating 4 mg PO Q6H PRN nausea and 07/09/23 06/02/24 Rx tablet vomiting #10 tabs duloxetine 20 mg capsule,delayed 20 mg PO BID #60 caps 11/19/23 06/02/24 Rx release duloxetine 40 mg capsule,delayed 40 mg PO BID #60 caps 12/22/23 06/02/24 Rx release diclofenac sodium 75 mg 75 mg PO BID #28 tabs 05/13/24 06/02/24 Rx tablet,delayed release baclofen 5 mg tablet 5 mg PO TID #42 tabs 06/02/24 Rx meloxicam 15 mg tablet 15 mg PO DAILY #14 tabs 06/02/24 Rx New Prescriptions to Start Prescriptions: Allergies Allergy/AdvReac Type Severity Reaction Status Date / Time Sulfa (Sulfonamide Allergy Mild Verified 04/20/24 10:41 Antibiotics) [SULFA (SULFONAMIDE ANTIBIOTICS)] Assessment and Plan *Assessment and plan (1) Left buttock pain: Status: Acute Category: Medical Code(s): M79.18 - Myalgia, other site (2) Low back pain: Status: Acute Qualifiers: Back pain laterality: bilateral Chronicity: chronic Sciatica presence: unspecified whether sciatica present Qualified Code(s): M54.50 - Low back pain, unspecified; G89.29 - Other chronic pain Category: Medical Code(s): M54.50 - Low back pain, unspecified (3) Bilateral sacroiliitis: Status: Acute Category: Medical Code(s): M46.1 - Sacroiliitis, not elsewhere classified Plan Patient is still continue to experience significant pain throughout her low back and bilateral hips with limited range of motion. Patient has tried and failed conservative therapy including continued at home stretching exercise for longer than 12 weeks. Due to her continued pain I will order the patient MRI without contrast of her lumbar spine. We will plan on following up after this imaging for reevaluation of symptoms and plan of care. I will send in refills of her baclofen. I did also discuss with the patient due to not ever trying Celebrex we will send in a 2-week dose if this 100 mg twice a day. We will follow-up with this at her next visit if it did help additionally. Patient will return to clinic in 1 month for reevaluation of symptoms and plan of care. Patient has been instructed to contact the clinic with any concerns before the next appointment. Dr. Pack has reviewed this note and agrees with this plan of care. This note was dictated using voice recognition software and make contain errors or omissions. All injections are used with Lidocaine or Bupivacaine and Depo Medrol.
[2024-07-26 15:37] VITALS: BP 134/89; PULSE 82; RESP 14; O2SAT 96; BMI 34.9
== END 2024-07-26 23:59 | disposition home or self-care (01) ==
PROVIDERS: PCP Internal Medicine Adolescent Medicine; Visit Provider Nurse Practitioner Family
DX: M79.18 Myalgia, other site (principal); M54.50 Low back pain, unspecified; G89.29 Other chronic pain; M46.1 Sacroiliitis, not elsewhere classified; F17.210 Nicotine dependence, cigarettes, uncomplicated; Z73.89 Other problems related to life management difficulty
CPT/HCPCS: 99212; G0463

== ENCOUNTER 2024-09-02 14:52 | Outpatient (POV) | payer BC, SELFPAY ==
[2024-09-02 15:17] VITALS: BP 125/82; PULSE 71; RESP 16; O2SAT 96; BMI 33.3
--- NOTE | 2024-09-02 15:41 | EXP.PAIN.SOA ---
[facility] Disclaimer: The information contained in this section may have been updated after the patient was seen, as this information can be updated by other users. Medical History Attention deficit disorder (ADD) in adult Menorrhagia Recurrent major depression resistant to treatment Surgical History History of tonsillectomy and adenoidectomy Hx of section Hx of wisdom tooth extraction Family History Other FHx: mental illness Fibromyalgia Social History Smoking Status: Current every day smoker tobacco type: cigarettes packs per day: 1 quit status: considering quitting second hand exposure: Yes alcohol intake: current alcohol intake frequency: holidays/special occasions only counseling given: No substance use type: denies use counseling given: No current occupational status: other Travel in the last 8 weeks: None adopted: No caregiver/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: Yes (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) foster care: No household members: spouse housing: house lives independently: Yes marital status: number of children: 3 number of grandchildren: 0 education level: high school service: No intermediate: No 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 Patient rates her pain today a 8 out of 10. Patient does still complain of chronic low back pain that does go into her bilateral hips. Patient was recently denied any MRI due to lack of physical therapy. Patient had previously been ordered physical therapy however she ended up having to cancel her appointment and then when she called to reschedule they stated that the order had . Patient does also make mention that the Celebrex she never picked up to try and see if that made any difference. Patient has been on baclofen 5 mg 3 times a day however does state that typically even the 5 mg just knocks her out that she will wait until the end of the day to take it. Her Larwence has been reviewed and is appropriate. Review of Systems: General: No recent weight changes, no fever, no sleep disturbances Respiratory: No cough, no shortness of air, no recurring pulmonary infections Cardiovascular/peripheral vascular: No chest pain, no palpitations, no edema, no shortness of breath Gastrointestinal: No new onset incontinence, normal bowel movements reported Genitourinary: No new onset incontinence Musculoskeletal: Low back pain, hip pain Psychiatric: [Normal mood/affect] Neurological: [Denies weakness in extremities], [denies balance issues] Pain at rest (0-10 scale): 8 Objective Objective:: Physical Exam: General: Alert and oriented x3, no acute distress, pleasant and cooperative Lungs: Respirations even and unlabored, symmetrical chest expansion Eyes: PERRL Musculoskeletal: Flexion and extension of lumbar [spine] somewhat guarded secondary to pain Neurological: Speech clear, no gross sensory deficit Has patient had previous pain injection?: No Conservative treatment options previously tried: Home exercise plan Length of treatment: Longer than 12 weeks Meds Home Medications and Allergies Home Medications ?Medication ?Instructions ?Recorded ?Confirmed ?Type fluoxetine 40 mg capsule 40 mg PO DAILY Depression #30 caps 03/04/19 09/02/24 Rx gabapentin 300 mg capsule 300 mg PO TID fibromyalgia 03/04/19 09/02/24 History cariprazine 1.5 mg capsule 1.5 mg PO DAILY #30 caps 01/29/23 09/02/24 Rx (Vraylar) hydroxychloroquine 200 mg tablet 200 mg PO BID 02/24/23 09/02/24 History methocarbamol 750 mg tablet 1,500 mg (2 x 750 mg) PO TID 5 07/09/23 09/02/24 Rx days #30 tabs ondansetron 4 mg disintegrating 4 mg PO Q6H PRN nausea and 07/09/23 09/02/24 Rx tablet vomiting #10 tabs duloxetine 20 mg capsule,delayed 20 mg PO BID #60 caps 11/19/23 09/02/24 Rx release duloxetine 40 mg capsule,delayed 40 mg PO BID #60 caps 12/22/23 09/02/24 Rx release diclofenac sodium 75 mg 75 mg PO BID #28 tabs 05/13/24 09/02/24 Rx tablet,delayed release meloxicam 15 mg tablet 15 mg PO DAILY #14 tabs 06/02/24 09/02/24 Rx baclofen 5 mg tablet 5 mg PO TID #90 tabs 07/26/24 09/02/24 Rx celecoxib 100 mg capsule 100 mg PO BID #28 caps 07/26/24 09/02/24 Rx New Prescriptions to Start Prescriptions: Allergies Allergy/AdvReac Type Severity Reaction Status Date / Time Sulfa (Sulfonamide Allergy Mild Verified 04/20/24 10:41 Antibiotics) (SULFA (SULFONAMIDE ANTIBIOTICS)) Assessment and Plan *Assessment and plan (1) Low back pain: Status: Acute Qualifiers: Chronicity: chronic Back pain laterality: bilateral Sciatica presence: unspecified whether sciatica present Qualified Code(s): M54.50 - Low back pain, unspecified; G89.29 - Other chronic pain Category: Medical Code(s): M54.50 - Low back pain, unspecified (2) Bilateral sacroiliitis: Status: Acute Category: Medical Code(s): M46.1 - Sacroiliitis, not elsewhere classified Plan I will submit a new order for physical therapy for her low back pain and also send in a 2-week dose of Celebrex 100 mg twice a day as well as a new prescription of methocarbamol 500 mg 3 times daily. Patient has had the methocarbamol in the past however could not remember whether or not how beneficial it was. Patient was counseled to take these at separate times to confirm that she does not have a reaction and that she is able to distinguish between medications if she were to have a side effect. Patient agrees with plan of care. Patient will return to clinic in 6 weeks following her physical therapy and we will plan on ordering updated imaging at that point. Patient has been instructed to contact the clinic with any concerns before the next appointment. Dr. Pack has reviewed this note and agrees with this plan of care. This note was dictated using voice recognition software and make contain errors or omissions. All injections are used with Lidocaine, Bupivacaine and Depo Medrol. Occasionally urine drug screen is needed to verify patient's compliance with our office pain contract. This is ordered based off specific treatments related to chronic pain with the potential to abuse certain medications.
== END 2024-09-02 23:59 | disposition home or self-care (01) ==
LOC: SC.PAIN 14:53
PROVIDERS: PCP Internal Medicine Adolescent Medicine; Visit Provider Nurse Practitioner Family
DX: M54.50 Low back pain, unspecified (principal); G89.29 Other chronic pain; M46.1 Sacroiliitis, not elsewhere classified; F17.210 Nicotine dependence, cigarettes, uncomplicated
CPT/HCPCS: 99212; G0463

== ENCOUNTER 2024-11-24 11:27 | Outpatient (POV) | payer BC, SELFPAY ==
--- NOTE | 2024-11-24 11:31 | A.OFFVIS_ITS ---
[facility] Disclaimer: The information contained in this section may have been updated after the patient was seen, as this information can be updated by other users. Medical History Attention deficit disorder (ADD) in adult Menorrhagia Recurrent major depression resistant to treatment Surgical History History of tonsillectomy and adenoidectomy Hx of section Hx of wisdom tooth extraction Family History Other FHx: mental illness Fibromyalgia Social History Smoking Status: Current every day smoker tobacco type: cigarettes packs per day: 1 quit status: considering quitting second hand exposure: Yes alcohol intake: current alcohol intake frequency: holidays/special occasions only counseling given: No substance use type: denies use counseling given: No current occupational status: other Travel in the last 8 weeks: None adopted: No caregiver/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: Yes (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) foster care: No household members: spouse housing: house lives independently: Yes marital status: number of children: 3 number of grandchildren: 0 education level: high school service: No [place] [facility] [place]: No current occupation: [employer] Hx Recent Travel: No sexually active: Yes are you practicing safe sex: Yes caffeine: Yes physical activity: none amanda/yazidi: Scientology special amanda needs: No working smoke detector in home: Yes fire extinguisher in home: Yes carbon monox detector in home: No firearms in home: Yes firearms unloaded and locked: Yes do you feel safe at home: Yes PM Subjective & Objective Subjective Subjective:: Patient is a pleasant 34-year-old female who presents today for 1 month follow- up. Today she rates her pain 6 out of 10. She denies any new trauma or injury. Patient does state that from her last visit she never did get an updated word on the physical therapy. Patient was also prescribed Celebrex 100 mg twice a day along with methocarbamol 500 mg 3 times a day. She does state that the Celebrex really did not seem to make much difference however did notice significant improvement with the methocarbamol. She denies any side effects.. Patient does states she still has the chronic pain throughout her low back and hips. Patient was previously denied MRI due to not having recent physical therapy. Her Lawrence has been reviewed and is appropriate. Review of Systems: General: No recent weight changes, no fever, no sleep disturbances Respiratory: No cough, no shortness of air, no recurring pulmonary infections Cardiovascular/peripheral vascular: No chest pain, no palpitations, no edema, no shortness of breath Gastrointestinal: No new onset incontinence, normal bowel movements reported Genitourinary: No new onset incontinence Musculoskeletal: Low back pain, bilateral hip pain Psychiatric: [Normal mood/affect] Neurological: [Denies weakness in extremities], [denies balance issues] Pain at rest (0-10 scale): 6 Objective Objective:: Physical Exam: General: Alert and oriented x3, no acute distress, pleasant and cooperative Lungs: Respirations even and unlabored, symmetrical chest expansion Eyes: PERRL Musculoskeletal: Flexion and extension of lumbar [spine] somewhat guarded secondary to pain, [antalgic gait noted] point tenderness along bilateral SIs with positive bilateral Adela's, Ritika's, Gaenslen's, compression and distraction exam Neurological: Speech clear, no gross sensory deficit Has patient had previous pain injection?: No Conservative treatment options previously tried: Home exercise plan Length of treatment: Longer than 12 weeks Meds Home Medications and Allergies Home Medications ?Medication ?Instructions ?Recorded ?Confirmed ?Type fluoxetine 40 mg capsule 40 mg PO DAILY Depression #30 caps 03/04/19 09/02/24 Rx gabapentin 300 mg capsule 300 mg PO TID fibromyalgia 03/04/19 09/02/24 History cariprazine 1.5 mg capsule 1.5 mg PO DAILY #30 caps 01/29/23 09/02/24 Rx (Vraylar) hydroxychloroquine 200 mg tablet 200 mg PO BID 02/24/23 09/02/24 History methocarbamol 750 mg tablet 1,500 mg (2 x 750 mg) PO TID 5 07/09/23 09/02/24 Rx days #30 tabs ondansetron 4 mg disintegrating 4 mg PO Q6H PRN nausea and 07/09/23 09/02/24 Rx tablet vomiting #10 tabs duloxetine 20 mg capsule,delayed 20 mg PO BID #60 caps 11/19/23 09/02/24 Rx release duloxetine 40 mg capsule,delayed 40 mg PO BID #60 caps 12/22/23 09/02/24 Rx release diclofenac sodium 75 mg 75 mg PO BID #28 tabs 05/13/24 09/02/24 Rx tablet,delayed release meloxicam 15 mg tablet 15 mg PO DAILY #14 tabs 06/02/24 09/02/24 Rx baclofen 5 mg tablet 5 mg PO TID #90 tabs 07/26/24 09/02/24 Rx celecoxib 100 mg capsule 100 mg PO BID #28 caps 07/26/24 09/02/24 Rx New Prescriptions to Start Prescriptions: Allergies Allergy/AdvReac Type Severity Reaction Status Date / Time Sulfa (Sulfonamide Allergy Mild Verified 04/20/24 10:41 Antibiotics) (SULFA (SULFONAMIDE ANTIBIOTICS)) Assessment and Plan *Assessment and plan (1) Bilateral sacroiliitis: Status: Acute Category: Medical Code(s): M46.1 - Sacroiliitis, not elsewhere classified Plan We will resubmit for physical therapy for her and I will send in a 3-month supply of her methocarbamol. Patient will return to clinic in 1 month for reevaluation of symptoms and plan of care. Patient has been instructed to contact the clinic with any concerns before the next appointment. Dr. Pack has reviewed this note and agrees with this plan of care. This note was dictated using voice recognition software and make contain errors or omissions. All injections are used with Lidocaine, Bupivacaine and Depo Medrol. Occasionally urine drug screen is needed to verify patient's compliance with our office pain contract. This is ordered based off specific treatments related to chronic pain with the potential to abuse certain medications.
[2024-11-24 11:38] VITALS: BP 135/92; BP 136/91; PULSE 62; RESP 14; O2SAT 99; BMI 38.0
== END 2024-11-24 23:59 | disposition home or self-care (01) ==
PROVIDERS: PCP Internal Medicine Adolescent Medicine; Visit Provider Nurse Practitioner Family
DX: M46.1 Sacroiliitis, not elsewhere classified (principal); M54.50 Low back pain, unspecified; M79.18 Myalgia, other site; F17.210 Nicotine dependence, cigarettes, uncomplicated
CPT/HCPCS: 99212; G0463

== ENCOUNTER 2025-01-11 09:07 | Outpatient (POV) | payer BC, SELFPAY ==
--- NOTE | 2025-01-11 09:09 | A.OFFVIS_ITS ---
[facility] Disclaimer: The information contained in this section may have been updated after the patient was seen, as this information can be updated by other users. Medical History Attention deficit disorder (ADD) in adult Menorrhagia Recurrent major depression resistant to treatment Surgical History History of tonsillectomy and adenoidectomy Hx of section Hx of wisdom tooth extraction Family History Other FHx: mental illness Fibromyalgia Social History Smoking Status: Current every day smoker tobacco type: cigarettes packs per day: 1 quit status: considering quitting second hand exposure: Yes alcohol intake: current alcohol intake frequency: holidays/special occasions only counseling given: No substance use type: denies use counseling given: No current occupational status: other Travel in the last 8 weeks: None adopted: No caregiver/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: Yes (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) foster care: No household members: spouse housing: house lives independently: Yes marital status: number of children: 3 number of grandchildren: 0 education level: high school service: No [employer]: No 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 She rates her pain today a 10 out of 18. Patient states that yesterday she was not doing anything other than just bending over and heard a loud pop. She states she is having severe pain since then. She states overall when she is at rest it is a dull ache however as soon as she gets up walking and moving that it goes to a 10 out of 10 and is sharp sensations that does radiate down into her tailbone and into her legs. Patient states that her current muscle relaxer just does not seem to be touching anything and that the pain is severe. She is asking what all we can do for the acute pain.Patient is currently managed with Celebrex 100 mg twice a day and methocarbamol 500 mg 3 times a day. She denies any side effects from this medication. Review of Systems: General: No recent weight changes, no fever, no sleep disturbances Respiratory: No cough, no shortness of air, no recurring pulmonary infections Cardiovascular/peripheral vascular: No chest pain, no palpitations, no edema, no shortness of breath Gastrointestinal: No new onset incontinence, normal bowel movements reported Genitourinary: No new onset incontinence Musculoskeletal: Low back pain Psychiatric: [Normal mood/affect] Neurological: [Denies weakness in extremities], [denies balance issues] Pain at rest (0-10 scale): 10 Objective Objective:: Physical Exam: General: Alert and oriented x3, no acute distress, pleasant and cooperative Lungs: Respirations even and unlabored, symmetrical chest expansion Eyes: PERRL Musculoskeletal: Flexion and extension of lumbar [spine] somewhat guarded secondary to pain Neurological: Speech clear, no gross sensory deficit Has patient had previous pain injection?: No Conservative treatment options previously tried: Home exercise plan Length of treatment: Longer than 12 weeks Meds Home Medications and Allergies Home Medications ?Medication ?Instructions ?Recorded ?Confirmed ?Type fluoxetine 40 mg capsule 40 mg PO DAILY Depression #30 caps 03/04/19 11/24/24 Rx gabapentin 300 mg capsule 300 mg PO TID fibromyalgia 03/04/19 11/24/24 History cariprazine 1.5 mg capsule 1.5 mg PO DAILY #30 caps 01/29/23 11/24/24 Rx (Vraylar) hydroxychloroquine 200 mg tablet 200 mg PO BID 02/24/23 11/24/24 History methocarbamol 750 mg tablet 1,500 mg (2 x 750 mg) PO TID 5 07/09/23 11/24/24 Rx days #30 tabs ondansetron 4 mg disintegrating 4 mg PO Q6H PRN nausea and 07/09/23 11/24/24 Rx tablet vomiting #10 tabs duloxetine 20 mg capsule,delayed 20 mg PO BID #60 caps 11/19/23 11/24/24 Rx release duloxetine 40 mg capsule,delayed 40 mg PO BID #60 caps 12/22/23 11/24/24 Rx release diclofenac sodium 75 mg 75 mg PO BID #28 tabs 05/13/24 11/24/24 Rx tablet,delayed release meloxicam 15 mg tablet 15 mg PO DAILY #14 tabs 06/02/24 11/24/24 Rx baclofen 5 mg tablet 5 mg PO TID #90 tabs 07/26/24 11/24/24 Rx methocarbamol 500 mg tablet 500 mg PO TID #90 tabs 11/24/24 Rx celecoxib 100 mg capsule 100 mg PO BID #60 caps 01/11/25 Rx methocarbamol 750 mg tablet 750 mg PO TID #90 tabs 01/11/25 Rx prednisone 20 mg tablet 20 mg PO BID #10 tabs 01/11/25 Rx suzetrigine 50 mg tablet (Journavx) 50 mg PO BID #28 tabs 01/11/25 Rx New Prescriptions to Start Prescriptions: celecoxib Ackerman,Roxane A methocarbamol Ackerman,Roxane A prednisone Ackerman,Roxane A suzetrigine [Journavx] Ackerman,Roxane A Allergies Allergy/AdvReac Type Severity Reaction Status Date / Time Sulfa (Sulfonamide Allergy Mild Verified 04/20/24 10:41 Antibiotics) (SULFA (SULFONAMIDE ANTIBIOTICS)) Assessment and Plan *Assessment and plan (1) Low back pain: Status: Acute Qualifiers: Back pain laterality: bilateral Chronicity: chronic Sciatica presence: unspecified whether sciatica present Qualified Code(s): M54.50 - Low back pain, unspecified; G89.29 - Other chronic pain Category: Medical Code(s): M54.50 - Low back pain, unspecified Plan Patient did not have point tenderness during today's visit with palpation down into her lower lumbar spine. Due to the severity of her pain and the loud popping noise that she did have when this injury occurred I will order x-ray imaging of her lumbar spine. Patient was also counseled that I will send in a 5-day dose of prednisone 20 mg twice daily and a 2-week dose of Journavx 50 mg twice daily. I will also change her methocarbamol to 750 mg 3 times daily and refill her Celebrex. Patient will be given a 1 week follow-up but was counseled if the pain does get more severe to let our office know and we can get her in before the week is out for additional interventions. Patient agrees with this plan of care. Patient has been instructed to contact the clinic with any concerns before the next appointment. Dr. Pack has reviewed this note and agrees with this plan of care. This note was dictated using voice recognition software and make contain errors or omissions. All injections are used with Lidocaine, Bupivacaine and Depo Medrol. Occasionally urine drug screen is needed to verify patient's compliance with our office pain contract. This is ordered based off specific treatments related to chronic pain with the potential to abuse certain medications.
--- NOTE | 2025-01-11 09:25 | XR_ITS ---
FINAL REPORT CLINICAL HISTORY: Acute low back pain COMPARISON: 04/08/2024 FINDINGS: 3 views of the lumbar spine were obtained. There is no evidence of fracture. There is no malalignment. The vertebrae are normal in height. Disc spaces are preserved. No paraspinous soft tissue abnormalities identified. IMPRESSION: No acute bony abnormality. Reviewed, Interpreted and Dictated by Surjit Blancas MD Transcribed by Celena Rosenbaum Authenticated and [facility]
[2025-01-11 09:39] VITALS: BP 155/86; BP 159/114; PULSE 77; RESP 16; O2SAT 99; BMI 32.4
== END 2025-01-11 23:59 | disposition home or self-care (01) ==
PROVIDERS: PCP Internal Medicine Adolescent Medicine; Visit Provider Nurse Practitioner Family
DX: M54.50 Low back pain, unspecified (principal); G89.29 Other chronic pain; F17.210 Nicotine dependence, cigarettes, uncomplicated
CPT/HCPCS: 72100; 99212; G0463

== ENCOUNTER 2025-01-19 12:52 | Emergency (ER) | payer BC, SELFPAY ==
[2025-01-19 13:04] VITALS: BP 106/78; PULSE 79; RESP 16; TEMP 36.8; O2SAT 100; BMI 32.4
--- NOTE | 2025-01-19 13:16 | PC.NURSE ---
animal bite form faxed to health department
--- NOTE | 2025-01-19 13:18 | HMH.EDGENADL ---
Discharge Plan Disposition Patient Disposition: Home, Self-Care Condition: Good Prescriptions Prescriptions: New amoxicillin-pot clavulanate [Augmentin] 500-125 mg tablet 1 tab PO BID Qty: 20 0RF No Action hydroxychloroquine 200 mg tablet 200 mg PO BID Patient Comments: TAKE 1 TABLET BY MOUTH TWICE DAILY Vraylar 1.5 mg capsule 1.5 mg PO DAILY Qty: 30 1RF methocarbamol 750 mg tablet 1,500 mg PO TID 5 Days Qty: 30 0RF ondansetron 4 mg tablet,disintegrating 4 mg PO Q6H PRN (Reason: nausea and vomiting) Qty: 10 0RF duloxetine 40 mg capsule,delayed release(DR/EC) 40 mg PO BID Qty: 60 0RF diclofenac sodium 75 mg tablet,delayed release (DR/EC) 75 mg PO BID Qty: 28 0RF meloxicam 15 mg tablet 15 mg PO DAILY Qty: 14 0RF Journavx 50 mg tablet 50 mg PO BID Qty: 28 0RF prednisone 20 mg tablet 20 mg PO BID Qty: 10 0RF methocarbamol 750 mg tablet 750 mg PO TID Qty: 90 0RF celecoxib 100 mg capsule 100 mg PO BID Qty: 60 0RF gabapentin 300 MG capsule 300 mg PO TID Patient Comments: take 1 capsule by mouth three times a day fluoxetine 40 MG capsule 40 mg PO DAILY Qty: 30 0RF duloxetine 20 mg capsule,delayed release(DR/EC) 20 mg PO BID Qty: 60 0RF baclofen 5 mg tablet 5 mg PO TID Qty: 90 0RF methocarbamol 500 mg tablet 500 mg PO TID Qty: 90 2RF Referrals Follow up/Referrals: Chris Wallace MD [Primary Care Provider] - See instructions Activity Restrictions/Add. Instructions Additional Instructions/Restrictions: Follow-up with outpatient infusion on 01/22, , and 02/02 for follow-up vaccines Monitor area for signs of infection Return if symptoms worsen Clinical Impressions Clinical Impression: Animal bite of right thumb Qualifiers: Encounter type: initial encounter Qualified Code(s): S61.051A - Open bite of right thumb without damage to nail, initial encounter Instructions Patient Instructions: Animal Bites Print Language Print Language: Croatian Discharge ED Provider: Randall Alicea General Adult HPI <Balaji Thornton ([facility]), [place]SO[facility] [place] - Last Filed: 01/19/25 13:34> General Chief complaint: Animal Bite Stated complaint: Racoon bite to R hand Time Seen by Provider: 01/19/25 13:00 Mode of Arrival: Ambulatory Source of Information: Patient Description of Symptoms (Recalled from ER Triage Doc. 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 Pt states the raccoon is sick with distemper. Pt states her t-dap is UTD, and has never had to get the rabies vaccination before History of Present Illness HPI narrative: 34-year-old female presents for a raccoon bite to the right thumb. 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 Patient states tetanus is up-to-date and she has never had rabies vaccine before Related Data Home Medications ?Medication ?Instructions ?Recorded ?Confirmed gabapentin 300 mg capsule 300 mg PO TID fibromyalgia 03/04/19 01/11/25 hydroxychloroquine 200 mg tablet 200 mg PO BID 02/24/23 01/11/25 Previous Rx's ?Medication ?Instructions ?Recorded fluoxetine 40 mg capsule 40 mg PO DAILY Depression #30 caps 03/04/19 cariprazine 1.5 mg capsule 1.5 mg PO DAILY #30 caps 01/29/23 (Vraylar) methocarbamol 750 mg tablet 1,500 mg (2 x 750 mg) PO TID 5 07/09/23 days #30 tabs ondansetron 4 mg disintegrating 4 mg PO Q6H PRN nausea and 07/09/23 tablet vomiting #10 tabs duloxetine 20 mg capsule,delayed 20 mg PO BID #60 caps 11/19/23 release duloxetine 40 mg capsule,delayed 40 mg PO BID #60 caps 12/22/23 release diclofenac sodium 75 mg 75 mg PO BID #28 tabs 05/13/24 tablet,delayed release meloxicam 15 mg tablet 15 mg PO DAILY #14 tabs 06/02/24 baclofen 5 mg tablet 5 mg PO TID #90 tabs 07/26/24 methocarbamol 500 mg tablet 500 mg PO TID #90 tabs 11/24/24 celecoxib 100 mg capsule 100 mg PO BID #60 caps 04/22/25 methocarbamol 750 mg tablet 750 mg PO TID #90 tabs 01/11/25 prednisone 20 mg tablet 20 mg PO BID #10 tabs 01/11/25 suzetrigine 50 mg tablet (Journavx) 50 mg PO BID #28 tabs 01/11/25 amoxicillin 500 mg-potassium 1 tab PO BID #20 tabs 01/19/25 clavulanate 125 mg tablet (Augmentin) Allergies Allergy/AdvReac Type Severity Reaction Status Date / Time Sulfa (Sulfonamide Allergy Mild Verified 04/20/24 10:41 Antibiotics) (SULFA (SULFONAMIDE ANTIBIOTICS)) [facility] <Balaji Thornton ([facility]), INSO[facility] [place] - Last Filed: 01/19/25 13:34> [facility] Disclaimer: The information contained in this section may have been updated after the patient was seen, as this information can be updated by other users. Medical History , INSOLE RAS[place]) Menorrhagia Recurrent major depression resistant to treatment Attention deficit disorder (ADD) in adult Surgical History , INSOLE RAS[place]) Hx of wisdom tooth extraction History of tonsillectomy and adenoidectomy Hx of section Family History , INSOLE RASPER) Fibromyalgia FHx: mental illness Social History , INSOLE RAS[place]) Smoking Status: Never smoker quit status: considering quitting second hand exposure: Yes alcohol intake: current alcohol intake frequency: holidays/special occasions only counseling given: No substance use type: denies use counseling given: No current occupational status: other Travel in the last 8 weeks?: None adopted: No caregiver/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: Yes (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) foster care: No household members: spouse housing: house lives independently: Yes marital status: number of children: 3 number of grandchildren: 0 education level: high school service: No custodial: No 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 Hx Recent Travel: No sexually active: Yes are you practicing safe sex: Yes caffeine: Yes physical activity: none amanda/jain: [facility] special amanda needs: No working smoke detector in home: Yes fire extinguisher in home: Yes carbon monox detector in home: No firearms in home: Yes firearms unloaded and locked: Yes do you feel safe at home: Yes Have you lived/traveled outside US in past 30 days?: No Contact w/someone who lives/traveled outside US past 30 days?: No Exposure to someone with infectious disease in past 14 days?: No Do you have a fever (greater than 100.4 F or 38 C)?: No Have you tested positive for COVID-19?: No Exposed to someone with COVID-19 in past 14 days?: No Do you have a sore throat?: No Do you have a cough?: No Do you have any weakness?: No Do you have any diarrhea?: No Are you experiencing any unusual bleeding?: No Do you have any muscle aches/pain?: No Do you have any abdominal pain?: No Are you experiencing loss of taste or smell?: No Other Medical History Have you received the Flu Vaccine for this season: No Have you received the Pneumonia Vaccine: No <Balaji Thornton ([facility]), [place] [place] - Last Filed: 01/19/25 13:34> ROS Obtained: Yes Systems reviewed as appropriate & no additional complaints except as documented Physical Exam <Balaji Thornton ([facility]), INSO[employer] [place] - Last Filed: 01/19/25 13:34> General General appearance: alert and in no apparent distress Eye Eye exam: Present normal appearance and PERRL ENT ENT exam: Present normal exam Respiratory Respiratory exam: Present normal lung sounds bilaterally Cardiovascular Cardiovascular exam: Present regular rate and normal rhythm Expanded Upper Extremity Exam Right: Hand L/R back image: 1. abrasion Neurological Exam Neurological exam: Present alert and oriented X3 Skin Skin exam: Present warm and intact Medical Decision Making <Balaji Thornton ([facility]), INSOLE [place] - Last Filed: 01/19/25 13:34> Medical Records Medical records reviewed: Yes I reviewed the patient's medical records. Screening: Per USPSTF and CDC recommendations, given the prevalence of disease in our region, it is our hospital?s policy to screen for HIV and viral Hepatitis for all patients aged 18 and over and those with ongoing risk factors. Lawrence Inquiry Pt receiving controlled substance: No Lawrence was queried for this patient: No Vital Signs: 01/19/25 13:04 01/19/25 14:27 Temperature 98.3 F 98.7 F Temperature Source Oral Oral Pulse Rate 74 Pulse Rate [Right] 79 Respiratory Rate 16 18 Blood Pressure 112/70 Blood Pressure [Right Arm] 106/78 L Blood Pressure Mean [Right Arm] 87 Blood Pressure Source [Right Arm] Automatic Cuff Blood Pressure Position Supine Blood Pressure Position [Right Arm] Sitting 02 Sat by Pulse Oximetry 100 Oxygen Delivery Method Room Air Room Air Orders (Tests/Meds): ED MEDICATIONS Discontinued Medications Generic Name Dose Route Start Last Admin Trade Name Freq PRN Reason Stop Dose Admin Bacitracin 1 each 01/19/25 14:00 01/19/25 14:03 Bacitracin Oint 0.9gm Udp TP 01/19/25 14:01 1 each ONCE ONE Administration Rabies Immune Globulin 1,770 unit 01/19/25 13:11 01/19/25 14:04 Rabies Immune Globulin/Pf 300 Unit/Ml 5ml Vial IM 01/19/25 13:12 1,770 unit ONCE ONE Administration Rabies Vaccine 2.5 unit 01/19/25 13:11 01/19/25 14:05 Rabies Vaccine (Pcec)/Pf 2.5 Unit Vial IM 01/19/25 13:12 2.5 unit .ONCE ONE Administration Medical Decision Narrative: In summary patient is a 34-year-old female who presents to the emergency department for evaluation of animal bite from a raccoon. Patient is hemodynamically stable upon arrival, afebrile. Unremarkable physical exam. Differential diagnosis includes animal bite. Initial inventions include rabies vaccine and immunoglobulin. Upon repeat evaluation patient was doing good and bite was not bleeding. Given this patient was appropriate for discharge. Patient to return to outpatient infusion on 5?3, 5?7, 5?14 for follow-up vaccines. <Randall Alicea MD - Last Filed: 01/20/25 11:03> Vital Signs: 01/19/25 13:04 01/19/25 14:27 Temperature 98.3 F 98.7 F Temperature Source Oral Oral Pulse Rate 74 Pulse Rate [Right] 79 Respiratory Rate 16 18 Blood Pressure 112/70 Blood Pressure [Right Arm] 106/78 L Blood Pressure Mean [Right Arm] 87 Blood Pressure Source [Right Arm] Automatic Cuff Blood Pressure Position Supine Blood Pressure Position [Right Arm] Sitting 02 Sat by Pulse Oximetry 100 Oxygen Delivery Method Room Air Room Air Orders (Tests/Meds): ED MEDICATIONS Discontinued Medications Generic Name Dose Route Start Last Admin Trade Name Aruna PRN Reason Stop Dose Admin Bacitracin 1 each 01/19/25 14:00 01/19/25 14:03 Bacitracin Oint 0.9gm Udp TP 01/19/25 14:01 1 each ONCE ONE Administration Rabies Immune Globulin 1,770 unit 01/19/25 13:11 01/19/25 14:04 Rabies Immune Globulin/Pf 300 Unit/Ml 5ml Vial IM 01/19/25 13:12 1,770 unit ONCE ONE Administration Rabies Vaccine 2.5 unit 01/19/25 13:11 01/19/25 14:05 Rabies Vaccine (Pcec)/Pf 2.5 Unit Vial IM 01/19/25 13:12 2.5 unit .ONCE ONE Administration Medical Decision Narrative: In summary patient is a 34-year-old female who presents to the emergency department for evaluation of animal bite from a raccoon. Patient is hemodynamically stable upon arrival, afebrile. Unremarkable physical exam. Differential diagnosis includes animal bite. Initial inventions include rabies vaccine and immunoglobulin. Upon repeat evaluation patient was doing good and bite was not bleeding. Given this patient was appropriate for discharge. Patient to return to outpatient infusion on 5?3, 5?7, 5?14 for follow-up vaccines. I was consulted by the FABI, and we discussed the complexity of the problems being addressed. I approved the treatment and management plan for this patient's care in the Emergency Department, thus performing a substantive portion of the medical decision making. Randall Alicea MD Critical Care <Balaji Thornton ([facility]), INSOLE RAS[place] - Last Filed: 01/19/25 13:34> Critical Care Time Critical Care Time: No
[2025-01-19] MEDS: BACITRACIN OINT 0.9GM UDP 1 EACH TP (14:03)
[2025-01-19] MEDS: RABIES IMMUNE GLOBULIN/PF 300 UNIT/ML 5ML VIAL 1770 UNIT IM (14:04)
[2025-01-19] MEDS: RABIES VACCINE (PCEC)/PF 2.5 UNIT VIAL IM (14:05)
[2025-01-19 14:27] VITALS: BP 112/70; PULSE 74; RESP 18; TEMP 37.1; O2SAT 100
== END 2025-01-19 14:28 | disposition home or self-care (01) ==
PROVIDERS: Emergency Provider Emergency Medicine; PCP Internal Medicine Adolescent Medicine
DX: S61.051A Open bite of right thumb without damage to nail, initial encounter (principal); W55.51XA Bitten by raccoon, initial encounter; Z23 Encounter for immunization
CPT/HCPCS: 90375; 90471; 90675; 96372; 99284

== ENCOUNTER 2025-05-25 07:30 | Outpatient (CLI) | payer BC, SELFPAY ==
--- OUTSIDE RECORDS SUMMARY | 2025-05-25 07:33 | XMS_ITS | Encounter Summary ---
Author Organization Healthcare Address [address] [place] [address] Care Team Providers Care Suture Gauger Name Role Phone Nadeen Warren APRN Primary Care Provider + [phone] Chris Wallace MD Primary Care Provider [phone] Encounter Details Date Type Department Care Team (Late st Contact Info) Description 05/28/2022 Community [facility] [address] [place] [address] Berenice Nguyen APRN [address] [place] [address] Pain in joint, multiple sites (Primary Dx) Social History Tobacco Use Types Packs/Day Years Used Date Smoking Tobacco: Every Day Cigarettes Smokeless Tobacco: Never Alcohol Use Standard Drinks/Week Comments Never 0 (1 standard drink = 0.6 oz pure alcohol) Alcoholic Drinks/day: Social alcohol use [place] Depression Scale Answer Date Recorded [place] Depression Scale Total 0 06/22/2021 The thought of harming myself has occurred to me . Never 06/22/2021 Comments No Sex and Gender Information Value Date Recorded Sex Assigned at Female 03/28/2021 5:40 PM EDT Legal Sex Female 8:48 PM EDT Gender Identity Non-Binary 03/28/2021 5:40 PM EDT Sexual Orientation Choose not to disclose 2020 5:40 PM EDT documented as of this encounter Plan of Treatment Not on file documented as of this encounter Visit Diagnoses Diagnosis Pain in joint, multiple sites- Primary documented in this encounter Care Teams Suture Gauger Relationship Specialty Start Date End Date Nadeen Warren APRN [address] [facility] [place] [address] PCP - General 02/02/21 08/08/22 Chris Wallace MD [address] [facility] [address] [place] [address] PCP - General Internal Medicine 08/09/22 documented as of this encounter
--- OUTSIDE RECORDS SUMMARY | 2025-05-25 07:33 | XMS_ITS | Clinical Summary ---
Author Organization Healthcare Address [address] [place] [address] Care Team Providers Care Deckhand Name Role Phone Chris Wallace MD Primary Care Provider + [phone] Allergies Active Allergy Reactions Criticality Noted Date Comments Sulfa Drugs Unknown - Patient st ates they do not know rxn details Low 06/06/2015 Medications FLUoxetine (PROzac) 20 MG capsule Take 20 mg by mouth 1 (one) time each day. 05/27/2021 Active FLUoxetine (PROzac) 40 MG capsule Take 30 mg by mouth 1 (one) time each day. 05/23/2022 Active gabapentin (Neurontin) 300 MG capsule Take 300 mg by mouth 3 (three) times a day. 06/22/2022 Active hydroxychloroqui ne (Plaquenil) 200 MG tablet Take 1 tablet (200 mg total) by mouth 2 (two) times a day. 180 tablet 2 08/09/2022 Active Active Problems Problem Noted Date Diagnosed Date Encounter for supervision of normal in third trimester 04/11/2021 Maternal care due to low tra nsverse uterine scar from previous delivery 04/11/2021 Anxiety 06/06/2015 Resolved Problems Problem Noted Date Diagnosed Date Resolved Date Positive urine test 11/28/2020 04/30/2021 Immunizations Immunization Administration Dates Next Due Tdap 03/28/2021 Family History Medical History Relation Name Comments Uterine cancer Maternal Grandmother Ovarian cancer Mother Fibromyalgia Other 1 Rheum arthritis Other 2 Relation Name Status Comments Maternal Grandmother Mother Other 1 Other 2 Social History Tobacco Use Types Packs/Day Years Used Date Smoking Tobacco: Some Days Cigarettes Smokeless Tobacco: Never Tobacco Cessation:Ready to Q uit: Not Asked; Counseling Given: No Alcohol Use Standard Drinks/Week Comments Never 0 (1 standard drink = 0.6 oz pur e alcohol) PHQ-2 Answer Date Recorded Patient Health Questionnaire-2 Score 0 08/09/2022 [place] Depression Scale Answer Date Recorded [place] Depression Scale Total 0 06/22/2021 The thought of harming myself has occurred to me . Never 06/22/2021 Comments Unknown Sex and Gender Information Value Date Recorded Sex Assigned at Female 03/28/2021 5:40 PM EDT Legal Sex Female 8:48 PM EDT Gender Identity Non-Binary 03/28/2021 5:40 PM EDT Sexual Orientation Choose not to disclose 2020 5:40 PM EDT Last Filed Vital Signs Vital Sign Reading Time Taken Comments Blood Pressure 121/85 08/09/2022 10:14 AM EST Pulse 58 08/09/2022 10:14 AM EST Temperature 36.9 C (98.5 F) 07/04/2022 8:27 AM EDT Respiratory Rate - - Oxygen Saturation 98% 08/09/2022 10:14 AM EST Inhaled Oxygen Concentration - - Weight 97.1 kg (214 lb 1.1 oz) 08/09/2022 10:14 AM EST Height 165.1 cm (5' 5 ) 08/09/2022 10:14 AM EST Body Mass Index 35.62 08/09/2022 10:14 AM EST Plan of Treatment Health Maintenance Due Date Last Done Comments [facility]-/Child/Adol SDOH Screenings 1991 [facility]-Varicella Vaccines (1 of 2 - 13+ 2-dose series) 02/16/2004 [facility]- SDOH Screenings 2009 [facility]-Adult SDOH Screenings 2009 [facility]-Hepatitis B Vaccines (1 of 3 - 19+ 3-dose series) 2010 [facility]-Pap Smear 02/16/2012 [facility]-Cervical Cancer Screening 2021 [facility]-HPV/Cotest 2021 [facility]-Depression Screening 08/09/2023 022, 06/22/2021 [id number]-24 Vaccine (3 season) 2024 07/03/2021, 06/01/2021 [facility]-Influenza Vaccine (#1) 2025 [facility]-DTaP,Tdap,and Td Vaccine s (4 - Td or Tdap) 03/28/2031 03/28/2021, 02/02/2020, 12/01/2018 [facility]-Zoster Vaccines (1 of 2) 2041 HPV Vaccines Completed 12/22/2007, 06/23/2007, 04/21/2007 [facility]-HIV Screening Completed 11/29/2020, 11/29/2020 [facility]-Hepatitis C Screening Completed 2021, 11/29/2020 [facility]-Obesity Intervention Completed 022, 08/06/2022, 07/04/2022 [facility]-HIB Vaccines Aged Out No longer e ligible based on patient's age to complete this topic [facility]-Hepatitis A Vaccines Aged Out No longer eligible based on patient's age to complete this topic [facility]-IPV Vaccines Aged Out No longer e ligible based on patient's age to complete this topic [facility]-Pneumococcal Vaccine: Pediatrics (0 to 5 Years) and At-Risk Patients (6 to 49 Years) Aged Out No longer eligible b ased on patient's age to complete this topic [facility]-Rotavirus Vaccines Aged Out No lo nger eligible based on patient's age to complete this topic Procedures Procedure Name Priority Date/Time Associated Diagnosis Comments ACUTE HEPATITIS PANEL Routine 07/04/2022 9:43 AM EDT Positive ABISAI (antinuclear antibody) HIV 1/2 ANTIBODY/ANTIGEN SCREEN WITH REFLEX TO HIV I/II DIFFERENTIATION Routine 11/29/2020 10:38 AM EST from Last 3 Months or Most Recently Relevant to Health Maintenance Results * Acute Hepatitis Panel (07/04/2022 9:43 AM EDT) Hepatitis B Surf Antigen Negative Negative 07/04/2022 11:42 AM EDT [facility] Hepatitis C Antibody Negative Negative 07/04/2022 11:42 AM EDT [facility] Hepatitis A Antibody IgM Negative Negative 07/04/2022 11:42 AM EDT [facility] Hepatitis B Core Antibody IgM Negative Negative 07/04/2022 11:42 AM EDT [facility] Blood Venous blood specimen / Unknown Venipuncture / Unknown 07/04/2022 9:43 AM EDT 07/04/2022 9:43 AM EDT Priya QUEZADA LAB BLOOD ORDERABLES Final Resul t [facility] [address] [place] [address] * HIV 1 & 2 Antibody/Antigen Screen (11/29/2020 10:38 AM EST) HIV 1 Result NONREACTIVE Screening for HIV 1 and 2 antibodies is NONREACTIVE. No confirmatory testing is required. SUNQUEST 11/29/2020 10:3 8 AM EST 11/29/2020 12:38 PM EST Haroon San MD LAB BLOOD ORDERABLES Final Resu lt SUNQUEST from Last 3 Months or Most Recently Relevant to Health Maintenance Insurance ANTHEM Care Teams Deckhand Relationship Specialty Start Date End Date Chris Wallace MD [address] [place] [address] PCP - General Internal Medicine 08/09/22
--- OUTSIDE RECORDS SUMMARY | 2025-05-25 07:33 | XMS_ITS | Clinical Summary ---
Author Organization [facility] Address [address] [place] [address] Care Team Providers Care Bin Packer Name Role Phone Provider, No Known Primary Care Provider Unavail able Allergies Active Allergy Reactions Criticality Noted Date Comments Sulfa Antibiotics Hives 08/29/2020 Medications No known medications Active Problems No known active problems Family History Medical History Relation Name Comments Cervical cancer Mother Relation Name Status Comments Mother Social History Tobacco Use Types Packs/Day Years Used Date Smoking Tobacco: Every Day Cigarettes Smokeless Tobacco: Never Alcohol Use Standard Drinks/Week Comments Yes 0 (1 standard drink = 0.6 oz pur e alcohol) AUDIT-C Answer Date Recorded Q1: How often do you have a drink containing alc ohol? Monthly or less 08/29/2020 Average Number of Drinks Not on file 020 Frequency of Binge Drinking Not on file 04/2020 Overall Financial Resource Strain (CARDIA) Answe r Date Recorded How hard is it for you to pa y for the very basics like food, housing, medical care, and heating? Patient declined 08/29/2020 [facility] - Occupational Stress Questionnaire Answer Date Recorded Do you feel stress - tense, restless, nervous, or anxious, or unable to sleep at night because your mind is troubled all the time - these days? Patient declined 08/29/2020 Exercise Vital Sign Answer Date Recorde d On average, how many days pe r week do you engage in moderate to strenuous exercise (like a brisk walk)? Patient declined On average, how many minutes do you engage in exercise at this level? Patient declined 08/29/2020 Hunger Vital Sign Answer Date Recorded Within the past 12 months, y ou worried that your food would run out before you got the money to buy more. Patient declined Within the past 12 months, t he food you bought just didn't last and you didn't have money to get more. Patient declined 04/2020 PRAPARE - Transportation Answer Date Re corded In the past 12 months, has l ack of transportation kept you from medical appointments or from getting medications? Patient declined 08/29/2020 In the past 12 months, has l ack of transportation kept you from meetings, work, or from getting things needed for daily living? Patient declined 08/29/2020 Abuse Screen Answer Date Recorded Unsafe at Home or Work/School Not on file Feels Threatened by Someone? Not on file 04/2023 Does Anyone Keep You from Co ntacting Others or Doint Things Outside the Home? Not on file 06/29/2023 Physical Sign of Abuse Present Not on file 1 Housing Stability Answer Date Recorded Current Living Arrangements Not on file 04/2023 Potentially Unsafe Housing Conditions Not on gerson e 06/29/2023 Family and Community Support Answer Demarcus e Recorded Help with Day-to-Day Activities Not on file 06/29/2023 Lonely or Isolated Not on file 06/29/2023 Employment Answer Date Recorded Do you want help finding or keeping work or a anju b? Not on file 06/29/2023 Disabilities Answer Date Recorded Concentrating, Remembering, or Making Decisions Difficulty Not on file 06/29/2023 Doing Errands Independently Difficulty Not on fi le 06/29/2023 Education Answer Date Recorded Help with school or training? Not on file Preferred Language Not on file 06/29/2023 Comments Unknown Sex and Gender Information Value Date Recorded Sex Assigned at Not on file Legal Sex Female 10:45 AM EDT Gender Identity Not on file Sexual Orientation Not on file Last Filed Vital Signs Vital Sign Reading Time Taken Comments Blood Pressure 130/80 08/29/2020 2:06 PM EST Pulse - - Temperature - - Respiratory Rate - - Oxygen Saturation - - Inhaled Oxygen Concentration - - Weight 87.5 kg (193 lb) 08/29/2020 2:06 PM EST Height 165.1 cm (5' 5 ) 08/29/2020 2:06 PM EST Body Mass Index 32.12 08/29/2020 2:06 PM EST Plan of Treatment Health Maintenance Due Date Last Done Comments Annual Gynecologic Pelvic an d Breast Exam 1991 ANNUAL PHYSICAL 08/29/2020 HEPATITIS C SCREENING 08/29/2020 COVID-19 Vaccine (1 - 2023-2 5 season) 2025 INFLUENZA VACCINE 06/22/2025 TDAP/TD VACCINES (3 - Td or Tdap) 02/01/2030 02/02/2020, 12/01/2018 Pneumococcal Vaccine 0-49 Aged Out No longer eligible based on patient's age to complete this topic Care Teams Bin Packer Relationship Specialty Start Date End Date Provider, No Known [facility] [place] [address] PCP - General 08/29/20
--- OUTSIDE RECORDS SUMMARY | 2025-05-25 07:33 | XMS_ITS | Encounter Summary ---
Author Organization [facility] Address [address] [place] [address] Care Team Providers Care Animal Therapist Name Role Phone Nadeen Warren APRN Primary Care Provider + [phone] Chris Wallace MD Primary Care Provider [phone] Reason for Referral * Consultation (Routine) - Closed Specialty Diagnoses / Procedures Referred By Eliel norris Referred To Contact Rheumatology Diagnoses Positive ABISAI (antinuclear antibody) Berenice Nguyen, LEAD JAV[employer]CRIPT DEVELOPER [address] [address] Phone: tel: fax: Referral ID Status Reason Start Date Expiration Date V isits Requested Visits Authorized [id number] Closed Specialty Services Required 06/20/2022 12/20/2023 1 1 Encounter Details Date Type Department Care Team (Late st Contact Info) Description 06/20/2022 Community Orders Community Practice [address] [place] [address] Berenice Nguyen, LEAD JAVASCRIPT DEVELOPER [address] [id number] Positive ABISAI (antinuclear antibody) (Primary Dx) Social History Tobacco Use Types Packs/Day Years Used Date Smoking Tobacco: Every Day Cigarettes Smokeless Tobacco: Never Alcohol Use Standard Drinks/Week Comments Never 0 (1 standard drink = 0.6 oz pure alcohol) Alcoholic Drinks/day: Social alcohol use [place] Depression Scale Answer Date Recorded [place] Depression Scale Total 0 06/22/2021 The thought [...] as of this encounter Plan of Treatment Scheduled Referrals Name Type Priority Associated Diagnoses Order Schedule Ambulatory referral to Rheumatology Outpatient Referral Routine Positive ABISAI (antinuclear antibody) Expected: 06/20/2022 (Approximate), Expires: 12/19/2023 documented as of this encounter Visit Diagnoses Diagnosis Positive ABISAI (antinuclear antibody)- Primary Other and unspecified nonspecific immunological findings documented in this encounter Care Teams Animal Therapist Relationship Specialty Start Date End Date Nadeen Warren APRN [facility] [place] [address] PCP - General 02/02/21 08/08/22 Chris Wallace MD [facility] [address] [place] [address] PCP - General Internal Medicine 08/09/22 documented as of this encounter
[2025-05-27 12:35] LABS: Antinuclear Antibodies, IFA Positive (.)
== END 2025-05-25 23:59 | disposition home or self-care (01) ==
LOC: LAB 07:31
PROVIDERS: PCP Internal Medicine Adolescent Medicine; Visit Provider Dermatology
DX: R21 Rash and other nonspecific skin eruption (principal)
CPT/HCPCS: 36415; 86038; 86235